=== PATIENT | female | born 1940 | race Caucasian/White ===

== ENCOUNTER → 2018-01-09 | Outpatient (REF) | payer MEDICARE, BC, OTHER ==
[2018-01-09 18:00] LABS: ERYTHROCYTE SEDIMENTATION RATE 12 mm/hr (0-30)
[2018-01-09 18:05] LABS: C REACTIVE PROTEIN QUANTITATIV < 0.30 MG/DL (0.00-0.30); COMPLEMENT C4 28.6 MG/DL (10-40)
[2018-01-09 18:05] LABS: COMPLEMENT C3 110 MG/DL (90-180)
[2018-01-15 00:07] LABS: ANCA-ATYPICAL 1:40 titer (Neg:<1:20); COMPLEMENT TOTAL (CH50) > 63 U/mL (>41); CYTOPLASMIC NEUTROP AB ANCA-C <1:20 titer (Neg:<1:20); MYELOPEROXIDASE ANTIBODY <9.0 U/mL (0.0-9.0); PERINUCLEAR AB ANCA-P <1:20 titer (Neg:<1:20); PR3 ANTIPROTEINASE ANTIBODIES <3.5 U/mL (0.0-3.5)
== END ==
LOC: M LABNEURO 10:59
DX: L95.9 Vasculitis limited to the skin, unspecified (principal); N18.9 Chronic kidney disease, unspecified
CPT/HCPCS: 86160

== ENCOUNTER → 2018-02-10 | Outpatient (REF) | payer MEDICARE, BC, OTHER ==
[2018-02-10 18:57] LABS: COMPLEMENT C3 131 MG/DL (90-180)
[2018-02-10 18:57] LABS: COMPLEMENT C4 30.9 MG/DL (10-40)
== END ==
LOC: M LAB REF 17:10
DX: N18.3 Chronic kidney disease, stage 3 (moderate) (principal)
CPT/HCPCS: 86160

== ENCOUNTER → 2018-04-02 | Outpatient (CLI) | payer MEDICARE, BC, OTHER | LOC: M RAD 09:00 | DX: N18.3 Chronic kidney disease, stage 3 (moderate) (principal) | CPT/HCPCS: 76775 ==

== ENCOUNTER → 2018-05-22 | Outpatient (REF) | payer MEDICARE, OTHER ==
[2018-05-22 14:35] LABS: TOTAL PROTEIN,RANDOM URINE 14.1 MG/DL (0.0-12.0)
== END ==
LOC: M LAB REF 13:51
DX: N18.3 Chronic kidney disease, stage 3 (moderate) (principal)
CPT/HCPCS: 82570

== ENCOUNTER → 2019-12-23 | Outpatient (REF) | payer MEDICARE, OTHER ==
[2019-12-23 18:34] LABS: BILIRUBIN,DIRECT 0.1 MG/DL (0.0-0.2); BILIRUBIN,TOTAL 0.5 MG/DL (0.2-1.0); CHOLESTEROL RISK RATIO 2.645 (<5); TOTAL PROTEIN 7.4 GM/DL (6.4-8.2)
== END ==
LOC: M LAB REF 16:36
PROVIDERS: ATTEND Internal Medicine Nephrology
DX: E78.2 Mixed hyperlipidemia (principal)

== ENCOUNTER 2020-11-02 16:32 | Inpatient (IN) | payer MEDICARE, BC, OTHER ==
[~2020-11-02] VITALS: Ht 152.4 cm; Wt 58.5 kg
[2020-11-02] MEDS ORDERED: LEVO50TA5 PO (17:19)
[2020-11-02] MEDS ORDERED: PRES10CA2 PO (17:19)
[2020-11-02] MEDS ORDERED: METO1TAB7 PO (17:19)
[2020-11-02] MEDS ORDERED: METO1TAB33 PO (17:19)
[2020-11-02] MEDS ORDERED: PRAL1INJ SQ (17:19)
[2020-11-02] MEDS ORDERED: CLOP75TA2 PO (17:19)
[2020-11-02] MEDS ORDERED: AMLO1TAB24 PO (17:19)
[2020-11-02] MEDS ORDERED: MECL-86 PO (17:19)
[2020-11-02] MEDS ORDERED: TIMO0.5S39 OU (17:19)
[2020-11-02] MEDS ORDERED: CALC1TAB19 PO (17:19)
[2020-11-02] MEDS ORDERED: LATA0.0015 OU (17:19)
[2020-11-02] MEDS ORDERED: ASPI81TA27 PO (17:19)
[2020-11-02] MEDS: NS 1,000 ML IV SCH ×2 (17:27→21:18)
[2020-11-02 17:28] LABS: BASO # 0.2 10^3/uL (0.0-0.2); BASO % 1.5 % (0.0-1.0); EOS # 0.2 10^3/uL (0.0-0.5); EOS % 2.2 % (0.0-3.0); HEMATOCRIT 48.6 % (36.0-47.0); HEMOGLOBIN 16.4 g/dl (12.0-15.5); LYMPH % 39.8 % (24.0-44.0); MEAN CORPUSCULAR HEMOGLOBIN 29.8 pg (27.0-33.0); MEAN CORPUSCULAR HGB CONC 33.7 g/dl (32.0-36.5); MEAN CORPUSCULAR VOLUME 88.4 fl (80.0-96.0); MONO # 0.9 10^3/uL (0.0-0.8); MONO % 8.5 % (2.0-8.0); NEUTROPHILS # 4.7 10^3/uL (1.5-8.5); NEUTROPHILS % 47.4 % (36.0-66.0); PLATELET COUNT, AUTOMATED 225 10^3/uL (150-450)
[2020-11-02 17:56] LABS: ALBUMIN 4.3 GM/DL (3.2-5.2); ALT/SGPT 23 U/L (12-78); BILIRUBIN,DIRECT 0.2 MG/DL (0.0-0.2); BILIRUBIN,TOTAL 0.6 MG/DL (0.2-1.0); BLOOD UREA NITROGEN 23 MG/DL (7-18); CALCIUM LEVEL 10.1 MG/DL (8.8-10.2); CARBON DIOXIDE LEVEL 18 MEQ/L (21-32); CHLORIDE LEVEL 109 MEQ/L (98-107); CREATININE FOR GFR 1.45 MG/DL (0.55-1.30); GLOMERULAR FILTRATION RATE 36.9 (>32); GLUCOSE, FASTING 97 MG/DL (70-100); POTASSIUM SERUM 3.4 MEQ/L (3.5-5.1); SODIUM LEVEL 145 MEQ/L (136-145); TOTAL PROTEIN 7.4 GM/DL (6.4-8.2)
--- NOTE | 2020-11-02 17:56 | REP ---
INDICATION: Altered Mental Status. COMPARISON: 08/31/2005. TECHNIQUE: Portable AP chest with the patient sitting. FINDINGS: The lung garcia are clear. Cardiac size is normal. The cheng, mediastinum and skeletal structures are unremarkable. IMPRESSION: Essentially negative portable chest <Electronically signed by Albert Miller > 11/02/20 1752
[2020-11-02 18:29] LABS: RSV AMPLIFICATION NEGATIVE (NEGATIVE)
[2020-11-02 18:53] LABS: VENOUS BASE EXCESS -7.4 (-2.0-2.0); VENOUS HCO3 16.2 MEQ/L (23.0-27.0); VENOUS O2 SATURATION 96.6 % (60.0-80.0); VENOUS PARTIAL PRESSURE CO2 28.5 mmHg (38.0-50.0); VENOUS PARTIAL PRESSURE O2 83.1 mmHg (30.0-50.0); VENOUS PH 7.372 UNITS (7.330-7.430); VENOUS STANDARD HCO3 18.5 MEQ/L; VENOUS TOTAL CO2 17.1 MEQ/L (24.0-28.0)
[2020-11-02] MEDS ORDERED: ACETAMINOPHEN TAB 650MG DOSE (2X325MG) PO PRN (20:10)
[2020-11-02 20:14] LABS: ACETAMINOPHEN LEVEL < 2.0 UG/ML (10.0-30.0); ACETONE/KETONE > 46.00 MG/DL (<2.81); ETHYL ALCOHOL (ETHANOL) < 0.003 % (0.000-0.010); MAGNESIUM LEVEL 1.9 MG/DL (1.8-2.4); SALICYLATE LEVEL < 1.7 MG/DL (5.0-30.0)
[2020-11-02] MEDS ORDERED: MECLIZINE 25 MG TABLET PO PRN (20:15)
[2020-11-02] MEDS ORDERED: ONDANSETRON 4MG/2ML VIAL IV PRN (20:25)
[2020-11-02 20:38] VITALS: BP 149/71
[2020-11-02 21:03] LABS: TOTAL 25(OH) VITAMIN D 21.9 NG/ML (30.0-100.0)
[2020-11-02] MEDS: amLODIPine 5 MG TAB PO SCH (21:17)
[2020-11-02] MEDS: HEPARIN SOD (PORCINE) 5000UNITS/ML 1ML VIAL/SYRINGE SC SCH (21:17)
[2020-11-02 21:28] LABS: PTH INTACT 85.1 PG/ML (18.5-88.0)
--- NOTE | 2020-11-02 21:35 | HPEPDOC ---
[facility] Medical History & Physical Date of Admission Nov 02, 2020 Date of Service: Nov 02, 2020 Attending Physician: MISTY ATWOOD MD History and Physical CHIEF COMPLAINT: [80 y/o white female complains of N/V/D x2 months.] HISTORY OF PRESENT ILLNESS: [Patient is a somewhat poor historian. This is a 80 year old female who presents to the ER on 11/02 with complains of nausea, vomiting, diarrhea, left sided and epigastric abdominal pain, loss of appetite, and weight loss over about 2 months per patient. Patient states that her symptoms have steadily been getting worse. Patient states that her abdominal pain and nausea come in waves and that vomiting seems to make her symptoms better. Patient states that she has had problems with her GI tract for a long time including multiple surgeries but cannot recall specific details. Patient states that her symptoms are severe to the point where she has not been able to eat for several weeks and can only take small sips of liquid at a time. She states that she has been dry retching and only passing small amounts of stool the past few days. Patient admits to associated dizziness, faintness, one fall about a week ago in which she landed on her backside and did not get hurt. Patient denies fever, chills, hematochezia, hematemesis, chest pain, shortness of breath. Per pt, she has been seen at another ED several times in the past week or so, we will attempt to receive these records.] PAST MEDICAL HISTORY: 1. [HTN]. 2. [Hyperlipidemia]. 3. [Hypothyroidism]. 4. CKD PAST SURGICAL HISTORY: 1. [Bowel resection]. SOCIAL HISTORY: Marital status: []. Resides in: [Home with ] Children: [daughter] Employment: [retired] Tobacco use:[N] ETOH: [N] Illicit drug use: [N] ALLERGIES: Please see below. REVIEW OF SYSTEMS: CONSTITUTIONAL: [Refer to HPI]. HEENT: [Denies URI sx]. CARDIOVASCULAR: [Refer to HPI]. RESPIRATORY: [Denies cough, wheezing]. GASTROINTESTINAL: [Refer to HPI]. GENITOURINARY: [Denies dysuria]. SKIN: [Denies rash]. MUSCULOSKELETAL: [Admits to weakness]. ENDOCRINE: [Denies hx of diabetes]. HOME MEDICATIONS: Please see below. PHYSICAL EXAMINATION: VITAL SIGNS: see below GENERAL APPEARANCE: [This is a tired appearing 80 y/o female. She is laying supine in bed comfortable in no acute distress.]. HEENT: [No rash, mass or lesion noted. EOMI, no conjunctival erythema or scleral icterus. Nares patent. Oral mucosa mildly dry. No erythema of oral mucosa.]. CARDIOVASCULAR: [Regular rate and rhythm. No murmurs, rubs or gallops noted.]. LUNGS: [Good air exchange. No wheezes, rales or rhonchi appreciated.]. ABDOMEN: [Soft, non-distended. Epigastric and LUQ tenderness noted. No organomegaly.]. EXTREMITIES: [Mild peripheral edema to LLE. Pulses intact.]. NEUROLOGICAL: [A+Ox3, slightly forgetful. Speech clear. Strength noted as 5/5 in all extremities. No focal deficits.]. PSYCHIATRIC: [Mood and affect appear appropriate. Patient is responsive to all questioning.]. LABORATORY DATA: See below. IMAGING: [Normal CXR performed in ED] MICROBIOLOGY: Please see below. ASSESSMENT/PLAN: 1. [Dehydration]. - Secondary to GI illness - 1L of normal saline has been started in the ER at 100ml/hr. We will reassess need for more fluid as this is administered. - Patient has been started on fluid diet, we will encourage oral intake as much as is tolerated - ADELAIDA is possible, as her creatinine is elevated, but no baseline is available. Etiology dehydration vs. ckd. We have ordered mag, phos, pth, urine urea nitrogen. Patient follows Dr. Montelongo nephrology outpatient, so can consider renal US in the morning 2. GI complaints - Etiology is currently unclear. We will attempt to collect old records to put together a good picture of this patient's PMH and review recent imaging performed at outside hospital. - We will begin zofran 4mg IV q4h prn for nausea and vomiting - Dr. Fishman surgery will be following and is consulted 3. Anion Gap Metabolic Acidosis - This patient has no history of diabetes but has anion gap metabolic acidosis with positive elevated beta hydroxybutyrate. Clinical picture and these results make us suspicious of starvation ketosis. - Ordered acetaminophen level, acetone, ethyl alcohol, liver profile, , salicylate, [id number], - Follow blood gases 4. Hypokalemia - Currently at 3.4, we will hold off on treatment and monitor as patient is rehydrated 5. HTN - well controlled - continue metoprolol and norvasc 6. Hypothyroidism - continue synthroid - tsh ordered 7. DVT prophylaxis - Heparin ordered, continue at home plavix and aspirin Vital Signs Vital Signs Date Time Temp Pulse Resp B/P (MAP) Pulse Ox O2 Delivery O2 Flow Rate FiO2 11/02/20 20:00 97.1 86 17 136/68 (90) 99 Room Air Laboratory Data Labs 24H Laboratory Tests 2 11/02/20 16:55: Immature Granulocyte % (Auto) 0.6, Neutrophils (%) (Auto) 47.4, Lymphocytes (%) (Auto) 39.8, Monocytes (%) (Auto) 8.5H, Eosinophils (%) (Auto) 2.2, Basophils (%) (Auto) 1.5H, Neutrophils # (Auto) 4.7, Lymphocytes # (Auto) 4.0, Monocytes # (Auto) 0.9H, Eosinophils # (Auto) 0.2, Basophils # (Auto) 0.2, Nucleated Red Blood Cells % (auto) 0.0, Anion Gap 18H, Glomerular Filtration Rate 36.9, Lactic Acid Level 1.6, Calcium Level 10.1, Magnesium Level 1.9, Total Bilirubin 0.6, Direct Bilirubin 0.2, Aspartate Amino Transf (AST/SGOT) 26, Alanine Aminotransferase (ALT/SGPT) 23, Alkaline Phosphatase 93, Total Protein 7.4, Albumin 4.3, Albumin/Globulin Ratio 1.4, Thyroid Stimulating Hormone (TSH) 3.720, Salicylates Level < 1.7L, Acetaminophen Level < 2.0L, Ethyl Alcohol Level < 0.003, B-Hydroxybutyrate > 46.00H 11/02/20 17:22: POC Glucose (Misc Panel) 98, POC Sodium (Misc Panel) 143, POC Potassium (Misc P noemi) 3.6, POC Chloride (Misc Panel) 108, POC Total CO2 (Misc Panel) 19.0L, POC Blood Urea Nitrogen (Misc Panel 25, POC Ionized Calcium (Misc Panel) 4.7, POC Creatinine (Misc Panel) 1.5H, POC Hematocrit (Misc Panel) 48.0 11/02/20 17:28: Coronavirus (COVID-19)(PCR) NEGATIVE, Influenza Type A (RT-PCR) NEGATIVE, Influenza Type B (RT-PCR) NEGATIVE, Respiratory Syncytial Virus (PCR) NEGATIVE 11/02/20 18:45: Blood Gas Bicarbonate Standard 18.5, Venous Blood pH 7.372, Venous Blood Partial Pressure CO2 28.5L, Venous Blood Partial Pressure O2 83.1H, Venous Blood Total Carbon Dioxide 17.1L, Venous Blood HCO3 16.2L, Venous Blood Oxygen Saturation 96.6H, Venous Blood Base Excess -7.4L CBC/BMP Laboratory Tests 11/02/20 16:55 Home Medications Scheduled Alirocumab (Praluent Pen) 75 Mg/1 Ml Pen.injctr, 75 MG SQ Q2WK PATIENT IS BEHIND BY 1 WEEK Amlodipine Besylate (Amlodipine Besylate) 5 Mg Tablet, 5 MG PO BID Aspirin (Aspirin EC) 81 Mg Tablet.dr, 81 MG PO DAILY Calcium Carbonate/Vitamin D3 (Calcium 600-Vit D3 800 Tablet) 1 Each Tablet, 1 TAB PO DAILY Clopidogrel Bisulfate (Clopidogrel) 75 Mg Tablet, 75 MG PO DAILY Latanoprost/Pf (Latanoprost 0.005% Eye Drop) 7.5 Ml Drops, 1 DROP OU QHS Levothyroxine Sodium (Levothyroxine Sodium) 50 Mcg Tablet, 50 MCG PO DAILY Metoprolol Succinate (Metoprolol Succinate) 50 Mg Tab.er.24h, 50 MG PO DAILY 150MG TOTAL DAILY Metoprolol Succinate (Metoprolol Succinate) 100 Mg Tab.er.24h, 100 MG PO DAILY 150MG TOTAL DAILY Timolol Maleate (Timolol Maleate) 0.5% 5ML Drop.daily, 1 DROP OU DAILY Vit C/E/Zn/Coppr/Lutein/Zeaxan (Preservision Areds 2 Softgel) 1 Each Capsule, 2 CAP PO DAILY Scheduled PRN Meclizine HCl (Meclizine HCl) 25 Mg Tablet, 25 MG PO TID PRN for DIZZINESS Allergies Coded Allergies: meperidine (Verified Allergy, Severe, SHOCK LIKE SYMPTOMS, 11/02/20) codeine (Verified Adverse Reaction, Mild, N/V, 11/02/20) fentanyl (Verified Adverse Reaction, Mild, PAIN FROM HEAD TO TOES, 11/02/20) A-FIB/CHADSVASC A-FIB History Current/History of A-Fib/PAF?: No Attending Note Attending Note Time of service 906pm Ms. Walrath is an 80 yr old M w a hx of dementia, HTN, hypothyroidism, DLP and CKD of unknown stage who has been having difficulties swallowing solids along with diarrhea and weight loss; she was recently hospitalized at [facility]. sent her to the ER for evaluation and will see the patient in the morning in the meanwhile we will admit her for management of dehydration 2/2 poor PO intake, starvation ketosis (acetone is high), ADELAIDA vs CKD & diarrhea and dysphagia. Plan: IVF, f/u renal studies & request records from office, f/u C.diff, obtain records from [facility] and f/u w prior to ordering imaging studies. Rest per JO ANN Lugo's H&P HALLE LUGO Nov 02, 2020 21:06 MISTY ATWOOD MD Nov 03, 2020 02:01
[2020-11-03] MEDS: LATANOPROST 0.005% OPHTH SOLN 2.5 ML OU SCH ×2 (00:31→20:24)
--- NOTE | 2020-11-03 01:12 | ECGEPIP ---
[facility] - ED Test Date: 2020-11-02 Pat Name: SULEIMAN SANTOS Department: Room: - Gender: Female It Help Desk Associate: : 1940 Requested By: Marilu Gómez Order Number: [id number] Reading MD: Ernesto Prieto Measurements Intervals [place] Rate: 68 P: 13 SC: 180 QRS: -56 QRSD: 84 T: 57 QT: 426 QTc: 452 Interpretive Statements Normal sinus rhythm Left axis deviation Inferior infarct , age undetermined Anteroseptal infarct , age undetermined NONSPECIFIC T WAVE ABNORMALITY(S) NO PRIORS FOR COMPARISON Electronically Signed on 11-03-2020 1:12:07 EDT by Ernesto Prieto
[2020-11-03 01:26] LABS: CREATININE,RANDOM URINE 55.9 MG/DL
[2020-11-03] MEDS: LEVOTHYROXINE 50MCG TABLET (0.05MG) PO SCH (05:48)
[2020-11-03 06:00] VITALS: BP 135/78
[2020-11-03 08:47] VITALS: BP_SYST 107; BP_SYST 114; BP_SYST 134; BP_DIAS 56; BP_DIAS 70; BP_DIAS 78
[2020-11-03] MEDS: amLODIPine 5 MG TAB PO SCH ×2 (08:55→20:27)
[2020-11-03] MEDS: METOPROLOL SUCC (TopROL XL) 50MG **XL** TAB PO SCH (08:55)
[2020-11-03] MEDS: CALCIUM/VITAMIN D 500 MG TAB PO SCH (08:56)
[2020-11-03] MEDS: TIMOLOL MALEATE 0.5% OPHTH SOLN 5 ML OU SCH (08:56)
[2020-11-03] MEDS: HEPARIN SOD (PORCINE) 5000UNITS/ML 1ML VIAL/SYRINGE SC SCH ×2 (08:56→20:24)
[2020-11-03] MEDS: ASPIRIN 81MG ENTERIC TABLET PO SCH (08:56)
[2020-11-03] MEDS: CLOPIDOGREL 75 MG TAB PO SCH (08:56)
[2020-11-03] MEDS ORDERED: METOPROLOL SUCC (TopROL XL) 100MG *XL* TAB PO SCH (09:00)
--- NOTE | 2020-11-03 11:28 | IPNPDOC ---
Subjective Date Seen The patient was seen on 11/03/20. Subjective Chief Complaint/HPI Subjective: Pt was seen at bedside. She's AAOx3 and denies any n/v/d currently. She's dizzy when she stands up and has had positive orthostats. Currently on fluids @100cc/h. She also states that she has epigastric and left sided abdominal discomfort that's dull in nature. Denies any CP, fever, chills. OBJECTIVE: PHYSICAL EXAM: GENERAL APPEARANCE: This is a tired appearing 80 y/o female. She is laying supine in bed comfortable in no acute distress. HEENT: No rash, mass or lesion noted. EOMI, no conjunctival erythema or scleral icterus. Nares patent. Oral mucosa mildly dry. No erythema of oral mucosa CARDIOVASCULAR: Regular rate and rhythm. No murmurs, rubs or gallops noted LUNGS: Good air exchange. No wheezes, rales or rhonchi appreciated ABDOMEN: Soft, non-distended. Epigastric and LUQ tenderness noted. No organomegaly EXTREMITIES: Mild peripheral edema to LLE. Pulses intact NEUROLOGICAL: AAOx3, slightly forgetful. Speech clear. Strength noted as 5/5 in all extremities. No focal neuro deficits PSYCHIATRIC: states she's experiencing hallucinations lately, appropriate mood and affect; no flat affect; no suicidal ideation ASSESSMENT AND PLAN: Patient is 80 y/o elderly female with PMHx significant for HTN, Lower extr venous bypass surgery on ASA and plavix, dementia, who presents with 1 month hx of n/v/d and decreased to essentially none PO intake for the past 2 weeks. Pt is a very poor historian, but she also had a complaint of midepigastric and lower abdominal pain as well as decreased ability to swallow. She states that she's been swallowing bits of food but then throws it back up. Also states that she's had about a 10Lb weight loss which may be due to poor intake. She initially reported to PCP Dr. Chiang who prescribed her cipro/flagyl which did not solve any of her symptoms. She presnted back to him who then sent her to [facility] ER for further workup. There, she was found to have elevated lipase and amylase and admitted for acute pancreatitis. scans of her gallbladder ultrasound showed fatty infiltration of the liver, but otherwise unremarkable RUQ u/s. MRI or abd with MRCP did not show any pancreatic abn. She's mananged for acute pancreatitis and discharged from the hospital to f/u with her PCP. Post discharge she continues to have the same symtpoms as mentioned above and presents back to her PCP who sent her to Dr. Fishman (Gen surgeon) who saw her yesterday. Pt presents to ER last night with same complaints, and found to have orthostatic hypotension, ADELAIDA. She was given fluids in the ER. I spoke with him and a consult has been put in as well. GI service is not diamond cleaner in the hospital. Will order for a barium esophagram to evaluate dysphagia and admit her to hospitalist service for further mgmt and workup. #Orthostatic hypotension - Dehydration- c/w fluids @100cc/h #Dysphagia - Barium swallow ordered - NPO status - Seven Fishman (gen surg) consulted- appreciate further recommendations - fecal fat stool ordered- r/o possible pancreatic insufficiency #nausea/vomiting/abdominal pain - Reviewed MRI abd with MRCP, CT scans from [facility] admission records (see chart for full details) - currently controlled on zofran - will monitor for Qt prolongation #HTN - will continue home meds and adjust as needed - will hold metoprolol for now #Hx of unspecific vein bypass - c/w asa and plavix #hypothyroidism -c/w home meds #Dementia - Pt states she's been experiencing hallucinations lately - will continue to monitor- if she becomes agitated and actively hallucinating during hospitalization, will consider meds Diet: NPO Fluids: NS @100cc/h dvt ppx: heparin CODE STATUS: DNR/DNI Disposition: I have spoken with patient's daughter Keyla Morrison ) at length to gather more history. I have also spoken with Dr. Fishman (Gen surgery) -appreciate more recommendations Assessment /Plan Plan/VTE VTE Prophylaxis Ordered?: Yes VS, I&O, 24H, Fishbone Vital Signs/I&O Vital Signs Date Time Temp Pulse Resp B/P (MAP) Pulse Ox O2 Delivery O2 Flow Rate FiO2 11/03/20 08:47 110 134/70 (91) 106 114/78 (90) 107/56 (73) 11/03/20 06:00 96.9 18 99 Room Air I&O- Last 24 Hours up to 6 AM 11/03/20 06:00 Intake Total 1210 ml Output Total 0 ml Balance 1210 ml Laboratory Data 24H LABS Laboratory Tests 2 11/02/20 16:55: Immature Granulocyte % (Auto) 0.6, Neutrophils (%) (Auto) 47.4, Lymphocytes (%) (Auto) 39.8, Monocytes (%) (Auto) 8.5H, Eosinophils (%) (Auto) 2.2, Basophils (%) (Auto) 1.5H, Neutrophils # (Auto) 4.7, Lymphocytes # (Auto) 4.0, Monocytes # (Auto) 0.9H, Eosinophils # (Auto) 0.2, Basophils # (Auto) 0.2, Nucleated Red Blood Cells % (auto) 0.0, Anion Gap 18H, Glomerular Filtration Rate 36.9, Lactic Acid Level 1.6, Calcium Level 10.1, Phosphorus Level 3.0, Magnesium Level 1.9, Total Bilirubin 0.6, Direct Bilirubin 0.2, Aspartate Amino Transf (AST/SGOT) 26, Alanine Aminotransferase (ALT/SGPT) 23, Alkaline Phosphatase 93, Total Protein 7.4, Albumin 4.3, Albumin/Globulin Ratio 1.4, 25-Hydroxy Vitamin D Total 21.9L, Thyroid Stimulating Hormone (TSH) 3.720, Parathyroid Hormone (Intact) 85.1, Salicylates Level < 1.7L, Acetaminophen Level < 2.0L, Ethyl Alcohol Level < 0.003, B-Hydroxybutyrate > 46.00H 11/02/20 17:22: POC Glucose (Misc Panel) 98, POC Sodium (Misc Panel) 143, POC Potassium (Misc Panel) 3.6, POC Chloride (Misc Panel) 108, POC Total CO2 (Misc Panel) 19.0L, POC Blood Urea Nitrogen (Misc Panel 25, POC Ionized Calcium (Misc Panel) 4.7, POC Creatinine (Misc Panel) 1.5H, POC Hematocrit (Misc Panel) 48.0 11/02/20 17:28: Coronavirus (COVID-19)(PCR) NEGATIVE, Influenza Type A (RT-PCR) NEGATIVE, Influenza Type B (RT-PCR) NEGATIVE, Respiratory Syncytial Virus (PCR) NEGATIVE 11/02/20 18:45: Blood Gas Bicarbonate Standard 18.5, Venous Blood pH 7.372, Venous Blood Partial Pressure CO2 28.5L, Venous Blood Partial Pressure O2 83.1H, Venous Blood Total Carbon Dioxide 17.1L, Venous Blood HCO3 16.2L, Venous Blood Oxygen Saturation 96.6H, Venous Blood Base Excess -7.4L 11/03/20 00:45: Urine Random Creatinine 55.9, Urine Random Sodium 112 CBC/BMP Laboratory Tests 11/02/20 16:55 GME ATTESTATION GME ATTESTATION My faculty preceptor for this patient encounter was physically present during t he encounter and was fully available. All aspects of the patient interview, examination, medical decision making process, and medical care plan development were reviewed and approved by the faculty preceptor. The faculty preceptor is aware and concurs with the plan as stated in the body of this note and will attest to such by his/her cosignature. ATTENDING NOTE I, Benny Horner MD, have independently examined this patient and performed my own physical exam, as well as reviewed the documentation and edited where necessary. I have discussed in detail with the resident / student the findings and plan of treatment as documented by the resident / student and edited their note. I agree with their findings and treatment plan and have edited their documentation Dean Moreno DO Nov 03, 2020 11:28 BENNY HORNER MD Nov 09, 2020 09:45
[2020-11-03] MEDS ORDERED: E-Z-GAS II EFFERVESCENT PACKET (SODIUM BICARB./CITRIC ACID/SIMETHICONE) As Ordered ONE (11:32)
[2020-11-03] MEDS ORDERED: E-Z-HD 98% w/w 340GM SUSP BTL As Ordered ONE (11:32)
[2020-11-03] MEDS ORDERED: E-Z-PAQUE 96% w/w SUSP 176GM BTL As Ordered ONE (11:32)
[2020-11-03] MEDS: NS 1,000 ML IV SCH ×2 (13:47→20:28)
[2020-11-03 14:00] VITALS: BP 123/55
--- NOTE | 2020-11-03 14:36 | REP ---
INDICATION: dysphagia. COMPARISON: None TECHNIQUE: This procedure was performed by Kaitlynn Patterson, [facility], under the direct supervision of . Images were reviewed with prior to dictation. Liquid barium and gas producing crystals were given in the erect position, as well as liquid barium in the prone oblique position in order to perform a double contrast esophagram examination. FINDINGS: A single view PA chest x-ray is submitted as a collator operator film. There are no changes since the previous chest x-ray dated 11/02/2020. The oral and pharyngeal stages of deglutition were unremarkable. Esophageal transport is delayed. There is dysmotility of the esophagus as well as mild dilation of the mid body, this then tapers distally to a questions submucosal stricture. Endoscopic correlation is strongly recommended. Tertiary contractions were also visualized during the exam. There is evidence of a hiatal hernia. There was no gastroesophageal reflux noted . IMPRESSION: 1. 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 2. Tertiary contractions. 3. Hiatal hernia. 1.4 minutes of fluoroscopy time was utilized for this procedure. Some fluoroscopic images are performed with last image hold technology. These images require no additional radiation. <Electronically signed by Kaitlynn Patterson > 11/03/20 1416 <Electronically signed by Chau Vazquez > 11/03/20 1431
--- NOTE | 2020-11-03 18:16 | CR ---
CONSULTATION DATE: 11/03/2020 HISTORY OF PRESENT ILLNESS: The patient was admitted last night after I saw her in the office. She had some orthostatic hypotension. She had this significant dysphasia and progressive dysphasia the family friend noted and unfortunately the patient is such a poor historian that we are not able to get much for history. She has had a recent admission in [place] with a workup of some issues and came down to my office with some x-rays but no paperwork and no discharge summaries and no other information. She had multiple complaints and still has those which is dysphasia that has been short in onset and in addition, has had severe diarrhea that has been going on for a month and has had some abdominal pain although it is hard to tell if this has been a longterm status. There was some element of questionable pancreatitis appreciated on an order for CAT scan/x-rays, however when I looked at the results and the films, I was not appreciating any significant peripancreatic inflammation. Ultrasound nor MRI revealed no evidence of stones, although the CAT scan suggests there may be some gallstones, but I feel that this is probably artifact. PAST MEDICAL HISTORY: The patient's past medical history is significant for: 1. History of hypertension. 2. Hyperlipidemia. 3. Hypothyroidism. 4. Chronic kidney disease. 5. History of bowel resection. PHYSICAL EXAMINATION: GENERAL APPEARANCE: A confused 80-year-old female who looks in no apparent distress. HEENT: Unremarkable. She looks as though she has a Dunbar's palsy (and after discussion with daughter, she has had a history of Dunbar's palsy). LUNGS: Clear anteriorly. HEART: Regular. ABDOMEN: Soft, nontender, nondistended. (Not appreciating this tenderness that was appreciated previously in the left mid abdomen.) EXTREMITIES: Warm and well perfused. IMPRESSION AND PLAN: 1. Orthostatic hypotension, probably secondary to dysphagia, secondary to dehydration, and I agree with fluid resuscitation - The confusing issue is that if she has had this progressive dysphagia, this would not fit very well with diarrhea issues and so I feel like there is something outside the abnormality here that is yet to be determined. I do feel that a barium swallow is obvious necessary to see if we have a functional issue or a true obstruction. 2. Diarrhea obviously some stool studies are being waited on at this point and we will see what those result, but if those are negative, then a colonoscopy may be warranted for her. From the standpoint of nutritional issues, I anticipate that she will need to have some sort of additional feeds, and I am not sure if this is secondary to neurologic issues or whether this is secondary to true dysphagia. Obviously a confusing issue is that her albumin is fine, despite a 20-pound weight loss. In general it is obvious that we have some work to do and we are just at the beginning of the workup and we will have to see what further studies show. It may be that we need to start some nutritional/enteral feeds via a feeding tube within the next couple of days just to assist with our overall patient status and fatigue and see if that makes any difference. It does sound as though she has had some sundowning as well, so I do think there is something more going on from a neurologic/short term memory loss issue, and thus I will defer obviously, those issues to more appropriate individuals. In any case, I will be glad to help with her care and will continue with seeing how we can assist with her increasing her nutritional input and seeing if we can modify her diarrhea issues.
[2020-11-03 22:00] VITALS: BP 134/66
[2020-11-04 06:07] LABS: BASO # 0.1 10^3/uL (0.0-0.2); BASO % 1.5 % (0.0-1.0); EOS # 0.3 10^3/uL (0.0-0.5); EOS % 5.5 % (0.0-3.0); HEMATOCRIT 36.3 % (36.0-47.0); LYMPH # 2.4 10^3/uL (1.5-5.0); LYMPH % 44.4 % (24.0-44.0); MEAN CORPUSCULAR HEMOGLOBIN 30.4 pg (27.0-33.0); MEAN CORPUSCULAR HGB CONC 34.4 g/dl (32.0-36.5); MEAN CORPUSCULAR VOLUME 88.3 fl (80.0-96.0); MONO # 0.6 10^3/uL (0.0-0.8); MONO % 10.8 % (2.0-8.0); NEUTROPHILS % 37.1 % (36.0-66.0); PLATELET COUNT, AUTOMATED 135 10^3/uL (150-450); RED BLOOD COUNT 4.11 10^6/uL (4.00-5.40); WHITE BLOOD COUNT 5.5 10^3/uL (4.0-10.0)
[2020-11-04 06:10] LABS: HEMOGLOBIN 12.5 g/dl (12.0-15.5)
[2020-11-04] MEDS: LEVOTHYROXINE 50MCG TABLET (0.05MG) PO SCH (06:24)
[2020-11-04] MEDS: NS 1,000 ML IV SCH (06:25)
[2020-11-04 06:33] LABS: BLOOD UREA NITROGEN 9 MG/DL (7-18); CALCIUM LEVEL 7.8 MG/DL (8.8-10.2); CARBON DIOXIDE LEVEL 19 MEQ/L (21-32); CHLORIDE LEVEL 116 MEQ/L (98-107); CREATININE FOR GFR 0.83 MG/DL (0.55-1.30); GLOMERULAR FILTRATION RATE > 60.0 (>32); GLUCOSE, FASTING 57 MG/DL (70-100); POTASSIUM SERUM 2.7 MEQ/L (3.5-5.1); SODIUM LEVEL 148 MEQ/L (136-145)
[2020-11-04] MEDS ORDERED: POTASSIUM CHLORIDE 10 MEQ SR TABLET PO ONE ×2 (06:45)
[2020-11-04 07:40] LABS: MAGNESIUM LEVEL 1.4 MG/DL (1.8-2.4)
[2020-11-04] MEDS: MAG SULF 1GM/100ML (MAG RUN) 1 GM in IV 1 EA IV SCH ×3 (08:54→11:29)
[2020-11-04] MEDS: D5W/0.45% SODIUM CHLORIDE 1,000 ML IV SCH ×2 (08:55→19:32)
[2020-11-04] MEDS: CALCIUM/VITAMIN D 500 MG TAB PO SCH (08:58)
[2020-11-04] MEDS: amLODIPine 5 MG TAB PO SCH ×2 (08:58→22:05)
[2020-11-04] MEDS: HEPARIN SOD (PORCINE) 5000UNITS/ML 1ML VIAL/SYRINGE SC SCH ×2 (08:58→22:02)
[2020-11-04] MEDS: ASPIRIN 81MG ENTERIC TABLET PO SCH (08:58)
[2020-11-04] MEDS: METOPROLOL SUCC (TopROL XL) 50MG **XL** TAB PO SCH (08:58)
[2020-11-04] MEDS: CLOPIDOGREL 75 MG TAB PO SCH (08:58)
[2020-11-04] MEDS: TIMOLOL MALEATE 0.5% OPHTH SOLN 5 ML OU SCH (08:59)
[2020-11-04 10:20] LABS: VITAMIN B12 LEVEL 694 PG/ML
[2020-11-04 10:21] LABS: FOLATE 17.9 NG/ML
--- NOTE | 2020-11-04 10:29 | IPNPDOC ---
Date Seen The patient was seen on 11/04/20. Progress Note SUBJECTIVE: Patient was seen and examined this morning. There have been no adverse effects reported overnight. She did receive her barium swallow yesterday which demonstrated dysmotility of the esophagus with a stricture distally. Additionally the patient has noted that she continues to have diarrhea. Patient also admits to hallucinations. She has noted seeing things that are not there. She states that this has been going on for a while where she sees or hears something that turns out to be false OBJECTIVE PHYSICAL EXAMINATION: VITAL SIGNS: Please see below. GENERAL: Awake, alert, and oriented. Appears in no acute distress. Lying comfortably in bed HEENT: Normocephalic. Atraumatic. Eyes nonicteric. Trachea is midline. Mucous membranes are pink and moist CARDIOVASCULAR: Normal S1. S2. Regular rate and rhythm. No clicks rubs or murmurs RESPIRATORY: Clear vesicular breath sounds bilaterally. Good respiratory effort. No wheezes, rhonchi or rales ABDOMINAL: Soft, nondistended. Mild tenderness of the left lower quadrant. No rebound tenderness or guarding. Normoactive bowel sounds EXTREMITIES: No edema. Full and equal pulses in bilateral upper and lower extremities NEUROLOGICAL: No focal neurological deficits PSYCHOLOGICAL: Mood and affect appear appropriate LABORATORY DATA, IMAGING STUDIES, MICROBIOLOGY: Please see below. DVT prophylaxis ordered?: Heparin ASSESSMENT AND PLAN: Patient is an 80 year old female with a past medical history significant for hypertension, hypothyroidism, and hyperlipidemia who presented to [facility] with complaint of dysphagia and diarrhea for 1-2 month duration with 20lb weight loss. PROBLEMS: 1. Dysphagia -Patient received barium swallow yesterday which demonstrated esophageal dysmotility and distal stricture which could explain her dysphagia. General Surgery has been consulted for endoscopy. Recommendations and assistance appreci ated -Patient currently NPO for endoscopy today -Endoscopy demonstrating gastritis and duodenitis as well as a stricture at the GE junction. Her stricture has been balloon stented by Dr. Fishman. She has been started on Protonix BID and Carafate QID. 2. Chronic Diarrhea likely functional -Patient has complaint of chronic diarrhea. Etiology is unclear. Patient herself is a poor historian and her care is fragmented as she has presented to multiple providers and hospitals. From previous records obtained she was hospitalized previously and has had CT abdomen and pelvis as well as abdominal MRI with MRCP. She was diagnosed with pancreatitis although the patient herself denied any pain consistent with pancreatitis nor did imaging demonstrate pancreatitis. She did have an elevated lipase however in the setting of her vomiting this is expected. -C. diff panel has been negative at her previous hospitalization. Unlikely infectious diarrhea. Her history states that she has had bowel resection which could result in diarrhea due to malabsorption and decreased absorption of bile acids however the patient did not actually have a bowel resection. She had colon polyps removed. -Possibly secondary to pancreatic insufficiency. Fecal fat in stool has been ordered. -She does have dementia and admits to hallucinations. This could suggest a Lewy Body dementia. A diagnosis of LBD could tie most of her symptoms together as this can cause autonomic symptoms including dysphagia with dysmotility, hallucinations, orthostatic hypotension, and although rare diarrhea -Could consider adding cholestyramine 3. Hypokalemia and Hypomagnesemia -Likely secondary to gastrointestinal loss. Will continue to monitor and replete as needed. 4. HTN -Continued on Metoprolol. BP normotensive 5. History of Femoral bypass grafting/PAD -Continue ASA and Plavix 6. Hypothyroidism -Continue Synthroid 7. Dementia -Patient noted to have dementia. As noted above consider possible Lewy Body Dementia as the patient has had hallucinations. This would of course be a clinical diagnosis and she could get evaluation by Neurology outpatient. She would be at risk for sundowning. 8. DVT Prophylaxis -TEDs and Sequentials for now. Patient may get upper and lower endoscopy after which pharmacologic prophylaxis can be added DISPOSITION: Likely discharge in 48 hours. Patient is pending upper and lower endoscopy VS, I&O, 24H, Fishbone Vital Signs/I&O Vital Signs Date Time Temp Pulse Resp B/P (MAP) Pulse Ox O2 Delivery O2 Flow Rate FiO2 11/04/20 08:58 78 133/65 11/03/20 22:00 98.4 18 98 Room Air I&O- Last 24 Hours up to 6 AM 11/04/20 06:00 Intake Total 3390 ml Output Total 1000 ml Balance 2390 ml Laboratory Data 24H LABS Laboratory Tests 2 11/04/20 05:41: Immature Granulocyte % (Auto) 0.7, Neutrophils (%) (Auto) 37.1, Lymphocytes (%) (Auto) 44.4H, Monocytes (%) (Auto) 10.8H, Eosinophils (%) (Auto) 5.5H, Basophils (%) (Auto) 1.5H, Neutrophils # (Auto) 2.0, Lymphocytes # (Auto) 2.4, Monocytes # (Auto) 0.6, Eosinophils # (Auto) 0.3, Basophils # (Auto) 0.1, Nucleated Red Blood Cells % (auto) 0.0, Anion Gap 13, Glomerular Filtration Rate > 60.0, Calcium Level 7.8#L, Magnesium Level 1.4L CBC/BMP Laboratory Tests 11/04/20 05:41 GME ATTESTATION GME ATTESTATION My faculty preceptor for this patient encounter was physically present during the encounter and was fully available. All aspects of the patient interview, examination, medical decision making process, and medical care plan development were reviewed and approved by the faculty preceptor. The faculty preceptor is aware and concurs with the plan as stated in the body of this note and will attest to such by his/her cosignature. ATTENDING NOTE I, Benny Castro MD, have independently examined this patient and performed my own physical exam, as well as reviewed the documentation and edited where necessary. I have discussed in detail with the resident / student the findings and plan of treatment as documented by the resident / student and edited their note. I agree with their findings and treatment plan and have edited their documentation MIGUEL SMITH DO Nov 04, 2020 10:29 BENNY CASTRO MD Nov 09, 2020 09:46
--- NOTE | 2020-11-04 15:40 | ROOR ---
Patient Name: January Axel Procedure Date: 11/04/2020 3:03 PM Date of : 1940 Age: 80 Room: [facility] Gender: Female Note Status: Finalized Procedure: Upper GI endoscopy Indications: Dysphagia Providers: Richar Fishman Jr, MD Referring MD: 2. Inpatient 2. Inpatient Requesting Provider: Medicines: Propofol per Anesthesia Complications: No immediate complications. Procedure: Pre-Anesthesia Assessment: - Prior to the procedure, a History and Physical was performed, and patient medications and allergies were reviewed. The patient is competent. The risks and benefits of the procedure and the sedation options and risks were discussed with the patient. All questions were answered and informed consent was obtained. Patient identification and proposed procedure were verified by the physician and the nurse in the pre-procedure area and in the procedure room. Mental Status Examination: alert and oriented. Airway Examination: normal oropharyngeal airway and neck mobility. Respiratory Examination: clear to auscultation. CV Examination: normal. ASA Grade Assessment: II - A patient with mild systemic disease. After reviewing the risks and benefits, the patient was deemed in satisfactory condition to undergo the procedure. The anesthesia plan was to use moderate sedation / analgesia (conscious sedation). Immediately prior to administration of medications, the patient was re-assessed for adequacy to receive sedatives. The heart rate, respiratory rate, oxygen saturations, blood pressure, adequacy of pulmonary ventilation, and response to care were monitored throughout the procedure. The physical status of the patient was re-assessed after the procedure. The Endoscope was introduced through the mouth, and advanced to the second part of duodenum. The upper GI endoscopy was accomplished without difficulty. The patient tolerated the procedure well. Findings: The upper third of the esophagus, middle third of the esophagus and lower third of the esophagus were normal. One benign-appearing, intrinsic moderate stenosis was found at the gastroesophageal junction. The stenosis was traversed. A TTS dilator was passed through the scope. Dilation with a 10-11-12 mm balloon and a 12-13.5-15 mm balloon dilator was performed to 13.5 mm. A small hiatal hernia was present. Scattered severe inflammation with hemorrhage characterized by congestion (edema), erythema, friability and granularity was found in the gastric antrum. Biopsies were taken with a cold forceps for histology. Scattered severe inflammation characterized by congestion (edema), erosions, erythema and friability was found in the duodenal bulb and in the first portion of the duodenum. Biopsies were taken with a cold forceps for histology. The second portion of the duodenum was normal. Impression: - Normal upper third of esophagus, middle third of esophagus and lower third of esophagus. - Benign-appearing esophageal stenosis. Dilated. - Small hiatal hernia. - Gastritis with hemorrhage. Biopsied. - Duodenitis. Biopsied. - Normal second portion of the duodenum. Recommendation: - [facility]. Procedure Code(s): --- Professional --- 78249, Esophagogastroduodenoscopy, flexible, transoral; with transendoscopic balloon dilation of esophagus (less than 30 mm diameter) Diagnosis Code(s): --- Professional --- K22.2, Esophageal obstruction K44.9, Diaphragmatic hernia without obstruction or gangrene K29.71, Gastritis, unspecified, with bleeding K29.80, Duodenitis without bleeding R13.10, Dysphagia, unspecified CPT copyright 2019 [employer]. All rights reserved. The codes documented in this report are preliminary and upon film inspector review may be revised to meet current compliance requirements. Richar Fishman MD Richar Fishman Jr, MD 11/04/2020 3:40:14 PM Electronically signed by Richar Fishman Jr, MD Number of Addenda: 0 Note Initiated On: 11/04/2020 3:03 PM Estimated Blood Loss: Estimated blood loss: none.
[2020-11-04] MEDS: SUCRALFATE SUSP 1GM/10ML UD PO SCH ×2 (17:48→23:23)
[2020-11-04] MEDS: KCL 10MEQ/100ML SWI (KRUN) 10 MEQ in IV 1 EA IV SCH ×4 (17:49→22:02)
[2020-11-04 22:00] VITALS: BP 124/55
[2020-11-04] MEDS: PANTOPRAZOLE 40MG VIAL (C9113 PER 1) IV SCH (22:02)
[2020-11-04] MEDS: LATANOPROST 0.005% OPHTH SOLN 2.5 ML OU SCH (22:06)
[2020-11-05] MEDS ORDERED: RAMELTEON 8 MG TAB (ROZEREM) PO PRN (02:05)
[2020-11-05] MEDS: SUCRALFATE SUSP 1GM/10ML UD PO SCH ×3 (05:29→17:54)
[2020-11-05] MEDS: LEVOTHYROXINE 50MCG TABLET (0.05MG) PO SCH (05:29)
[2020-11-05 05:45] LABS: BASO # 0.1 10^3/uL (0.0-0.2); BASO % 0.9 % (0.0-1.0); EOS # 0.4 10^3/uL (0.0-0.5); HEMATOCRIT 35.2 % (36.0-47.0); LYMPH # 2.5 10^3/uL (1.5-5.0); LYMPH % 36.9 % (24.0-44.0); MEAN CORPUSCULAR HEMOGLOBIN 29.9 pg (27.0-33.0); MEAN CORPUSCULAR HGB CONC 34.1 g/dl (32.0-36.5); MEAN CORPUSCULAR VOLUME 87.8 fl (80.0-96.0); MONO # 0.7 10^3/uL (0.0-0.8); MONO % 10.7 % (2.0-8.0); NEUTROPHILS # 3.1 10^3/uL (1.5-8.5); NEUTROPHILS % 44.9 % (36.0-66.0); PLATELET COUNT, AUTOMATED 119 10^3/uL (150-450); RED BLOOD COUNT 4.01 10^6/uL (4.00-5.40); WHITE BLOOD COUNT 6.8 10^3/uL (4.0-10.0)
[2020-11-05 06:00] VITALS: BP 107/62
[2020-11-05 06:18] LABS: BLOOD UREA NITROGEN 4 MG/DL (7-18); CALCIUM LEVEL 7.6 MG/DL (8.8-10.2); CARBON DIOXIDE LEVEL 23 MEQ/L (21-32); CHLORIDE LEVEL 114 MEQ/L (98-107); CREATININE FOR GFR 0.67 MG/DL (0.55-1.30); GLOMERULAR FILTRATION RATE > 60.0 (>32); GLUCOSE, FASTING 125 MG/DL (70-100); POTASSIUM SERUM 3.4 MEQ/L (3.5-5.1); SODIUM LEVEL 143 MEQ/L (136-145)
[2020-11-05] MEDS: PANTOPRAZOLE 40MG VIAL (C9113 PER 1) IV SCH ×2 (08:29→20:38)
[2020-11-05] MEDS: ASPIRIN 81MG ENTERIC TABLET PO SCH (08:29)
[2020-11-05] MEDS: CALCIUM/VITAMIN D 500 MG TAB PO SCH (08:29)
[2020-11-05] MEDS: HEPARIN SOD (PORCINE) 5000UNITS/ML 1ML VIAL/SYRINGE SC SCH ×2 (08:32→20:39)
[2020-11-05] MEDS: CLOPIDOGREL 75 MG TAB PO SCH (08:32)
[2020-11-05] MEDS: TIMOLOL MALEATE 0.5% OPHTH SOLN 5 ML OU SCH (08:33)
[2020-11-05] MEDS: METOPROLOL SUCC (TopROL XL) 50MG **XL** TAB PO SCH ×2 (08:59→15:36)
[2020-11-05] MEDS: KCL 20MEQ IN D5/0.45NS 1000ML 1,000 ML IV SCH ×2 (09:00→20:38)
--- NOTE | 2020-11-05 10:41 | IPN ---
PROGRESS NOTE DATE: 11/05/2020 SUBJECTIVE: Ava is seen in [address] [place] [address], had an EGD yesterday with dilatation of the esophagus, some inflammatory changes were seen, but the stricture looked benign. She is not eating very well today, but she attributes that to "the food is all too sweet." She denies any dysphagia. She did not have a lower endoscopy done. PHYSICAL EXAMINATION: VITAL SIGNS: Afebrile, vital signs stable. LUNGS: Clear. HEART: Regular rhythm. ABDOMEN: Soft, nontender. EXTREMITIES: No peripheral edema. LABORATORY REVIEW: CBC unremarkable. CMP shows potassium 3.4. IMPRESSION: 1. Dysphagia; status post EGD with dilatation of a benign appearing esophageal stricture: Biopsies are pending. 2. Chronic diarrhea: She had a CT scan of the abdomen and pelvis as well as an MRI and MRCP. She has a fecal fat that is pending. I do not have access to her previous testing. I am going to be ordering a panel that includes a celiac screen. We could try empiric pancreatic enzymes. 3. Hypokalemia: Supplemental potassium has been given.
--- NOTE | 2020-11-05 11:37 | IPNPDOC ---
Text Note Date of Service The patient was seen on 11/05/20. NOTE No acute events overnight. She is tolerating diet. Denies nausea, emesis, or trouble swallowing. She is still having loose BMs. VSSAF NAD Abdomen soft, Nt, nd labs - below A) 80y/o f s/p EGD with dilation of distal esophageal benign appearing stricture P) clq diet till Saturday then advance to high fiber diet ambulate stool studies pending Isaiah Soto DO VS,Tierra, I+O VS, Tierra, I+O Laboratory Tests 11/05/20 05:25 Vital Signs Date Time Temp Pulse Resp B/P (MAP) Pulse Ox O2 Delivery O2 Flow Rate FiO2 11/05/20 08:59 60 110/60 11/05/20 06:00 97.7 16 95 Room Air I&O- Last 24 Hours up to 6 AM 11/05/20 06:00 Intake Total 1500 ml Output Total 250 ml Balance 1250 ml FEDE SOTO DO Nov 05, 2020 11:37
[2020-11-05 13:01] LABS: CLOSTRIDIUM DIFFICILE PCR NEGATIVE (NEGATIVE)
[2020-11-05 14:00] VITALS: BP 123/61
[2020-11-05] MEDS: LATANOPROST 0.005% OPHTH SOLN 2.5 ML OU SCH (20:39)
[2020-11-05 22:00] VITALS: BP 121/59
[2020-11-06] MEDS: SUCRALFATE SUSP 1GM/10ML UD PO SCH ×4 (00:25→17:44)
[2020-11-06] MEDS: LEVOTHYROXINE 50MCG TABLET (0.05MG) PO SCH (05:31)
[2020-11-06 06:00] VITALS: BP 130/60
[2020-11-06 06:00] LABS: BASO # 0.1 10^3/uL (0.0-0.2); BASO % 1.5 % (0.0-1.0); EOS # 0.5 10^3/uL (0.0-0.5); EOS % 7.8 % (0.0-3.0); HEMATOCRIT 39.8 % (36.0-47.0); HEMOGLOBIN 13.5 g/dl (12.0-15.5); LYMPH # 3.4 10^3/uL (1.5-5.0); LYMPH % 52.7 % (24.0-44.0); MEAN CORPUSCULAR HEMOGLOBIN 29.9 pg (27.0-33.0); MEAN CORPUSCULAR HGB CONC 33.9 g/dl (32.0-36.5); MEAN CORPUSCULAR VOLUME 88.1 fl (80.0-96.0); MONO # 0.8 10^3/uL (0.0-0.8); MONO % 12.1 % (2.0-8.0); NEUTROPHILS # 1.7 10^3/uL (1.5-8.5); NEUTROPHILS % 25.3 % (36.0-66.0); PLATELET COUNT, AUTOMATED 127 10^3/uL (150-450); RED BLOOD COUNT 4.52 10^6/uL (4.00-5.40); WHITE BLOOD COUNT 6.5 10^3/uL (4.0-10.0)
[2020-11-06 06:18] LABS: BLOOD UREA NITROGEN 3 MG/DL (7-18); CARBON DIOXIDE LEVEL 23 MEQ/L (21-32); CHLORIDE LEVEL 116 MEQ/L (98-107); CREATININE FOR GFR 0.88 MG/DL (0.55-1.30); GLOMERULAR FILTRATION RATE > 60.0 (>32); GLUCOSE, FASTING 96 MG/DL (70-100); POTASSIUM SERUM 3.7 MEQ/L (3.5-5.1); SODIUM LEVEL 144 MEQ/L (136-145)
[2020-11-06] MEDS: PANTOPRAZOLE 40MG VIAL (C9113 PER 1) IV SCH ×2 (08:56→20:53)
[2020-11-06] MEDS: HEPARIN SOD (PORCINE) 5000UNITS/ML 1ML VIAL/SYRINGE SC SCH ×2 (08:56→20:53)
[2020-11-06] MEDS: METOPROLOL SUCC (TopROL XL) 50MG **XL** TAB PO SCH ×3 (08:57→16:56)
[2020-11-06] MEDS: CALCIUM/VITAMIN D 500 MG TAB PO SCH (08:57)
[2020-11-06] MEDS: ASPIRIN 81MG ENTERIC TABLET PO SCH (08:57)
[2020-11-06] MEDS: CLOPIDOGREL 75 MG TAB PO SCH (08:57)
[2020-11-06] MEDS: TIMOLOL MALEATE 0.5% OPHTH SOLN 5 ML OU SCH (08:58)
[2020-11-06] MEDS: KCL 20MEQ IN D5/0.45NS 1000ML 1,000 ML IV SCH ×2 (09:06→20:53)
--- NOTE | 2020-11-06 10:12 | IPNPDOC ---
Text Note Date of Service The patient was seen on 11/06/20. NOTE No acute events overnight. She is tolerating the clear liquid diet. Denies na usea, emesis, or trouble swallowing. She is still having loose BMs. VSSAF NAD Abdomen soft, Nt, nd labs - below A) 80y/o f s/p EGD with dilation of distal esophageal benign appearing stricture P) will advance to soft diet today ambulate stool studies pending Isaiah Soto DO VS,[place], I+O VS, Fishbone, I+O Laboratory Tests 11/06/20 05:44 Vital Signs Date Time Temp Pulse Resp B/P (MAP) Pulse Ox O2 Delivery O2 Flow Rate FiO2 11/06/20 08:57 62 130/60 11/06/20 06:00 97.4 18 98 11/05/20 14:00 Room Air I&O- Last 24 Hours up to 6 AM 11/06/20 06:00 Intake Total 1980 ml Output Total 1850 ml Balance 130 ml FEDE SOTO DO Nov 06, 2020 10:12
--- NOTE | 2020-11-06 13:51 | IPN ---
PROGRESS NOTE DATE: 11/06/2020 Ava is taking oral better. She feels better than yesterday. Was seen by surgery yesterday, who thought she was improving. PHYSICAL EXAMINATION: Vital signs stable. afebrile. LUNGS: Clear. HEART: Regular rate and rhythm. ABDOMEN: Soft. Slightly tender in epigastric area, otherwise unremarkable. No peripheral edema. LABORATORY DATA: CBC unremarkable. Electrolytes unremarkable. Potassium is up to 3.7. IMPRESSION: 1. Dysphagia, status post esophagogastroduodenoscopy (EGD) with dilatation. Diet is per surgery. Apparently planning to advance this tomorrow. 2. Chronic diarrhea. Workup is pending. 3. Hypokalemia. This is improved. Acute rehabilitation unit (ARU) consult placed.
[2020-11-06 14:00] VITALS: BP 115/64
[2020-11-06] MEDS: LATANOPROST 0.005% OPHTH SOLN 2.5 ML OU SCH (20:53)
[2020-11-06 22:00] VITALS: BP 128/59
[2020-11-07] MEDS: SUCRALFATE SUSP 1GM/10ML UD PO SCH ×4 (00:29→17:11)
[2020-11-07] MEDS: METOPROLOL SUCC (TopROL XL) 50MG **XL** TAB PO SCH ×3 (00:30→17:11)
[2020-11-07] MEDS: LEVOTHYROXINE 50MCG TABLET (0.05MG) PO SCH (05:41)
[2020-11-07 06:00] VITALS: BP 117/47
[2020-11-07 06:27] LABS: BASO # 0.1 10^3/uL (0.0-0.2); BASO % 1.2 % (0.0-1.0); EOS # 0.5 10^3/uL (0.0-0.5); EOS % 8.4 % (0.0-3.0); HEMATOCRIT 41.7 % (36.0-47.0); HEMOGLOBIN 13.8 g/dl (12.0-15.5); LYMPH # 2.8 10^3/uL (1.5-5.0); LYMPH % 49.5 % (24.0-44.0); MEAN CORPUSCULAR HEMOGLOBIN 29.9 pg (27.0-33.0); MEAN CORPUSCULAR HGB CONC 33.1 g/dl (32.0-36.5); MEAN CORPUSCULAR VOLUME 90.5 fl (80.0-96.0); MONO # 0.8 10^3/uL (0.0-0.8); MONO % 13.1 % (2.0-8.0); NEUTROPHILS # 1.6 10^3/uL (1.5-8.5); NEUTROPHILS % 27.3 % (36.0-66.0); PLATELET COUNT, AUTOMATED 113 10^3/uL (150-450); RED BLOOD COUNT 4.61 10^6/uL (4.00-5.40); WHITE BLOOD COUNT 5.7 10^3/uL (4.0-10.0)
[2020-11-07 06:43] LABS: CALCIUM LEVEL 8.1 MG/DL (8.8-10.2); CREATININE FOR GFR 1.07 MG/DL (0.55-1.30); GLOMERULAR FILTRATION RATE 52.4 (>32); POTASSIUM SERUM 3.9 MEQ/L (3.5-5.1)
[2020-11-07] MEDS: PANTOPRAZOLE 40MG VIAL (C9113 PER 1) IV SCH (09:04)
[2020-11-07] MEDS: CALCIUM/VITAMIN D 500 MG TAB PO SCH (09:04)
[2020-11-07] MEDS: ASPIRIN 81MG ENTERIC TABLET PO SCH (09:04)
[2020-11-07] MEDS: CLOPIDOGREL 75 MG TAB PO SCH (09:04)
[2020-11-07] MEDS: HEPARIN SOD (PORCINE) 5000UNITS/ML 1ML VIAL/SYRINGE SC SCH (09:04)
[2020-11-07] MEDS: TIMOLOL MALEATE 0.5% OPHTH SOLN 5 ML OU SCH (09:05)
[2020-11-07] MEDS: KCL 20MEQ IN D5/0.45NS 1000ML 1,000 ML IV SCH (09:05)
[2020-11-07] MEDS ORDERED: RAME8TAB2 PO (10:27)
[2020-11-07] MEDS ORDERED: SUCR1ORA PO (10:27)
[2020-11-07] MEDS ORDERED: PROT1TAB2 PO (10:27)
--- NOTE | 2020-11-07 10:50 | IPNPDOC ---
Text Note Date of Service The patient was seen on 11/07/20. NOTE Gen. surgery. Dr. Fishman The patient is a 80-year-old female with progressive dysphagia status post EGD 11/04/20 with esophageal stenosis, status post dilation. Patient was advanced to soft diet 11/06 and states she has been tolerating. She states she had macaroni and cheese and spaghetti yesterday. This morning she does report some nausea. Denies vomiting. Afebrile, VSS Awake and alert, resting in bed Lungs clear anteriorly S1-S2 regular rate and rhythm Abdomen is soft, nontender, nondistended. Assessment/plan 80y/o s/p EGD with dilation of distal esophageal benign appearing stricture. Patient is tolerating soft diet. Gastric biopsy pending. Continue to encourage ambulation. VS,Fishbone, I+O VS, Fishbone, I+O Laboratory Tests 11/07/20 05:58 Vital Signs Date Time Temp Pulse Resp B/P (MAP) Pulse Ox O2 Delivery O2 Flow Rate FiO2 11/07/20 09:13 64 127/60 11/07/20 06:00 97.8 18 97 Room Air I&O- Last 24 Hours up to 6 AM 11/07/20 06:00 Intake Total 2580 ml Output Total 2400 ml Balance 180 ml Bambi Beck Nov 07, 2020 10:50
--- NOTE | 2020-11-07 13:37 | DSES ---
DISCHARGE SUMMARY DATE OF ADMISSION: 11/02/2020 DATE OF DISCHARGE: 11/07/2020 (Being discharged to ARU) PRINCIPAL DIAGNOSIS: 1. Dehydration secondary to esophageal stenosis for oral intake. 2. Acute kidney injury. 3. Anion gap metabolic acidosis secondary to dehydration and starvation. 4. Hypokalemia. 5. Hypertension. 6. Hypothyroidism. 7. Esophagogastroduodenoscopy with esophageal dilatation, Dr. Fishman on 11/04 (GI pathology pending at discharge); Gastritis with bleeding noted HISTORY: The patient was admitted dehydrated; she could not take oral intake well because of physical condition. HOSPITAL COURSE: She was admitted to a medical bed, rehydrated. Renal function returned to baseline. Creatinine went from 1.4 to 0.[address] Fishman did an EGD and dilated her esophagus. Her oral intake improved and for the last few days she has been eating increasingly well without swallowing difficulties. She is being transferred ARU today. The day of discharge vital signs are stable. Lungs are clear. Abdomen is soft, nontender. No peripheral edema. LABORATORY: Sodium 144, potassium 3.9, BUN 3, creatinine 1.0, glucose 93, white count 5.7, hemoglobin 13.8, platelets 113. Ketones were elevated on admission from starvation. DISPOSITION: She is being discharged today going to ARU. She is on Toprol XL 50 mg q 8 hours, Rozerem 8 mg every night at bedtime, Protonix 40 mg by mouth twice a day, Carafate 1 mg at meals and at bedtime, aspirin 81 mg daily, Plavix 75 mg daily, levothyroxine 50 mg daily, various eye drops, Tylenol as needed. Diet is being advanced as tolerated by surgery. Activity as tolerated. No pending labs at this time except the pathology from her esophagogastroduodenoscopy (EGD) MTDD
[2020-11-07 17:11] VITALS: BP 161/65
[2020-11-08 21:07] LABS: FATS NEUTRAL Normal (.); FATS TOTAL Normal (.)
== END 2020-11-07 18:00 | DRG 391 ==
LOC: M ED 16:32 → M ED INP 19:32 → ENRESERV 20:06 → M MSPAV 20:38
PROVIDERS: ADMIT Internal Medicine; ATTEND Family Medicine
PROC: 0DB98ZX Excision of Duodenum, Via Natural or Artificial Opening Endoscopic, Diagnostic (ICD-10-PCS; 2020-11-04)
PROC: 0D758ZZ Dilation of Esophagus, Via Natural or Artificial Opening Endoscopic (ICD-10-PCS; principal; 2020-11-04 15:00)
DX: K22.2 Esophageal obstruction (principal); K29.71 Gastritis, unspecified, with bleeding; E87.2 Acidosis; E87.6 Hypokalemia; I12.9 Hypertensive chronic kidney disease with stage 1 through stage 4 chronic kidney disease, or unspecified chronic kidney disease; E86.0 Dehydration; E78.5 Hyperlipidemia, unspecified; Z79.82 Long term (current) use of aspirin; Z79.899 Other long term (current) drug therapy; Z88.5 Allergy status to narcotic agent; Z88.8 Allergy status to other drugs, medicaments and biological substances; I95.1 Orthostatic hypotension; F03.90 Unspecified dementia, unspecified severity, without behavioral disturbance, psychotic disturbance, mood disturbance, and anxiety; Z66 Do not resuscitate; N18.9 Chronic kidney disease, unspecified; E83.42 Hypomagnesemia; K29.80 Duodenitis without bleeding; R13.10 Dysphagia, unspecified; K44.9 Diaphragmatic hernia without obstruction or gangrene

== ENCOUNTER 2020-11-07 13:49 | Inpatient (IN) | payer MEDICARE, BC, OTHER ==
[~2020-11-07] VITALS: Ht 152.4 cm; Wt 58.0 kg
[~2020-11-07 13:49] MED LIST: AMLO1TAB24 PO; ASPI81TA27 PO; CALC1TAB19 PO; CLOP75TA2 PO; LATA0.0015 OU; LEVO50TA5 PO; MECL-86 PO; METO1TAB33 PO; METO1TAB7 PO; PRAL1INJ SQ; PRES10CA2 PO; PROT1TAB2 PO; RAME8TAB2 PO; SUCR1ORA PO; TIMO0.5S39 OU
[2020-11-07 18:15] VITALS: BP 144/67
[2020-11-07] MEDS ORDERED: MECLIZINE 25 MG TABLET PO PRN (18:15)
[2020-11-07] MEDS ORDERED: ONDANSETRON 4 MG ORAL DISINTEGRATING TAB PO PRN (18:15)
[2020-11-07] MEDS ORDERED: ACETAMINOPHEN TAB 650MG DOSE (2X325MG) PO PRN (18:15)
[2020-11-07 20:00] VITALS: BP 157/80
[2020-11-07] MEDS: DOCUSATE SODIUM 100MG CAPSULE PO SCH (20:55)
[2020-11-07] MEDS: RAMELTEON 8 MG TAB (ROZEREM) PO PRN (20:55)
[2020-11-07] MEDS: SENNA 8.6 MG TAB (SENOKOT) PO SCH (20:55)
[2020-11-07] MEDS: PANTOPRAZOLE 40MG TAB (PROTONIX) PO SCH (20:55)
[2020-11-07] MEDS: amLODIPine 5 MG TAB PO SCH (20:55)
[2020-11-07] MEDS: SUCRALFATE 1 GM TAB PO SCH (20:55)
[2020-11-07] MEDS: METOPROLOL SUCC (TopROL XL) 50MG **XL** TAB PO SCH (20:59)
[2020-11-07] MEDS: REMEDY PHYTOPLEX Z-GUARD PASTE 113GM TUBE (FROM STOREROOM PRODUCT) TOP SCH (20:59)
[2020-11-07] MEDS: LATANOPROST 0.005% OPHTH SOLN 2.5 ML OU SCH (21:00)
[2020-11-07] MEDS ORDERED: HEPARIN SOD (PORCINE) 5000UNITS/ML 1ML VIAL/SYRINGE SC SCH (21:00)
--- NOTE | 2020-11-07 21:10 | HPEPDOC ---
Operational Review Sergeant Note DATE OF ADMISSION: 11-07-20 DATE OF SERVICE: 11-08-20 TIME OF ADMISSION: Please refer to physician's admission order. SOURCE OF ADMISSION INFORMATION:[facility] record and patient CHIEF COMPLAINT:weakness in setting of chronic diarrhea HISTORY OF PRESENT ILLNESS: 80F pm HTN, HLD, Hypothyroidism, CKD, with history of bowel resection presented to [facility] ED on 11-02-20 complaining nausea, vomiting, diarrhea, abdominal pain with weight loss and was diagnosed with starvation ketoacidosis. She underwent an esophagram study on 11-03-20 for dysphagia showing "Dysmotility of the esophagus with mild dilation of the mid body esophagus and tapers distally into a stricture" She then was seen by surgery who performed an EGD on 11-04-20 which showed esophageal stenosis, gastritis with hemorrhage and duodenitis. Following the esophageal dilatation she was placed on liquid diet which was advanced to soft diet with close surgical monitoring. She continued to have loose stools with work-up pending, was evaluated by therapy where she was noted to be weak with mobility and ADL impairments and deemed medically appropriate for discharge to ARU. Patient on initial exam noted to have left facial droop which she says she has had for years but is more pronounced since having lost weight. REVIEW OF SYSTEMS: The following is a completed review of systems and has been reviewed. Review of systems otherwise unremarkable. PAIN: Patient self reports no pain EYES: No recent vision changes EARS, NOSE, & THROAT: No throat pain, or dysphagia, or rhinorrhea CARDIOVASCULAR: Denies chest pain or palpitations PULMONARY: Denies shortness of breath GASTROINTESTINAL:+diarrhea GENITOURINARY: denies dysuria MUSCULOSKELETAL: generalized weakness NEUROLOGICAL:denies pareshtiesa or tremor HEMATOLOGICAL: denies easy bruising SKIN: denies rash PSYCHIATRIC: Unremarkable All other review of systems found to be negative. PAST MEDICAL HISTORY: as per HPI PAST SURGICAL HISTORY: as per HPI ALLERGIES: Please see below. MEDICATIONS: Please see below. SOCIAL HISTORY: blane etoh/illicit drugs/smoking DIET: soft PHYSICAL EXAMINATION: VITAL SIGNS: Please see below. GENERAL: Pleasant and cooperative. No acute distress. left facial droop HEENT: PERRL. Extraocular movements intact. Clear conjunctiva CARDIOVASCULAR: [Regular rate and rhythm. No murmurs, rubs, or gallops]. LUNGS: Clear to auscultation bilaterally. No wheezes. No rhonchi ABDOMEN: Soft, nontender, nondistended. Positive bowel sounds. Normal active bowel sounds NEUROLOGICAL: Alert and oriented times three. Cranial nerves II through XII grossly intact. Sensation grossly intact EXTREMITIES: 5\\5 strength bilateral upper extremities. 5\\5 strength right lower extremity. 5/5 strength in left lower extremity. SKIN: +external hemorrhoid, no sacral ulcer LABORATORY DATA: Please see below. IMAGING:Imaging documentation personally reviewed by record FUNCTIONAL STATUS: Premorbid: Independent with all activities of daily life as well as mobility On Admission: contact guard-standby assist for bed mobility, functional transfers, toileting, ambulating 35ft GOALS: Mod-I ambulating community distances, functional transfers, dressing, toileting, bathing ASSESSMENT:80-year-old F with past medical history of bowel resection who presents status post weakness in setting of chronic diarrhea and starvation ketoacidosis PLAN: 1. 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 cardiac- hx of HTN c/u metoprolol and amlodipine -CAD on ASA and Plavix -medicine consulted to assist in overall management 3. resp- monitor for infection 4. GI- recent EGD 11-04-20 showing hemorrhagic gastritis and duodenitis, c/u protonix BID and sucralfate, monitor H/H will order FOBT -esophageal stricture s/p dilatation, patient tolerating soft diet, will consult surgery to continue advancing -chronic diarrhea- work-up so far negative, patient denies having had colonocsopy in the past, will discuss with surgery -will start imodium and metamucil to bulk stools -will start IV reglan with meals to encourage po as patient with persistent nausea -preparation H and tucks for hemorrhoids 5. DVT ppx- teds, will hold of on heparin given risk for GI bleed while on ASA and Plavix, ambulating well 6. Endo- hypothyroidism, c/u synthroid 7. Pain- tylenol prn 8. Psych- insomnia- rozerem prn 9. DIspo- tbd POST ADMISSION PHYSICIAN EVALUATION: Medical and functional status: Description of medical status, medical assessment: As above. Rehabilitation diagnosis and current and prior cold morbid medical conditions as above. Risk of complications and plans to mitigate them as above. Description of functional status current status is as above. Prior status as above. Status compared to preadmission: There are no clinically significant differences between the patient's current status and the information described on the preadmission screening document. Treatment plan anticipated: Treatment plan is as described above. Required disciplines including physical therapy, occupational therapy, others as noted above. Intensity of services: 3 hours a day, 6 days a week. Special considerations: There are no specific special or safety considerations that would likely preclude immediate implementation of an intensive rehabilitat ion program or subsequently influence the plan of care. ATTESTATION: Considering all the information above, it is my best judgment that this patient requires intensive rehabilitation therapy as described above and an inpatient hospital environment due to the complexity of nursing, medical, and rehabilitation needs required by the patient. Furthermore, this patient can reasonably be expected to participate in an benefit from an inpatient rehabilitation stay with an interdisciplinary team approach to the delivery of rehabilitation care under the direction and supervision of rehabilitation physician. PROGNOSIS:good ESTIMATED LENGTH OF STAY:7-10days. PROJECTED DISCHARGE DESTINATION: Home with family support and any durable medical equipment required to increase functional safety and mobility. TIME SPENT COUNSELING AND COORDINATING INITIAL CARE: Greater than 70 minutes. Vital Signs Vital Sign - Last 24 Hours 11/07/20 11/07/20 11/07/20 18:15 20:55 20:59 Temp 98.7 Pulse 18 68 68 Resp 62 B/P (MAP) 144/67 (92) 157/80 157/80 Pulse Ox 99 O2 Delivery Room Air Home Medications Scheduled Amlodipine Besylate (Amlodipine Besylate) 5 Mg Tablet, 5 MG PO BID, (Reported) Aspirin (Aspirin EC) 81 Mg Tablet.dr, 81 MG PO DAILY, (Reported) Calcium Carbonate/Vitamin D3 (Calcium 600-Vit D3 800 Tablet) 1 Each Tablet, 1 TAB PO DAILY, (Reported) Clopidogrel Bisulfate (Clopidogrel) 75 Mg Tablet, 75 MG PO DAILY, (Reported) Latanoprost/Pf (Latanoprost 0.005% Eye Drop) 7.5 Ml Drops, 1 DROP OU QHS, (Reported) Levothyroxine Sodium (Levothyroxine Sodium) 50 Mcg Tablet, 50 MCG PO DAILY, (Reported) Metoprolol Succinate (Metoprolol Succinate) 50 Mg Tab.er.24h, 50 MG PO DAILY, (Reported) 150MG TOTAL DAILY Metoprolol Succinate (Metoprolol Succinate) 100 Mg Tab.er.24h, 100 MG PO DAILY, (Reported) 150MG TOTAL DAILY Pantoprazole Sodium (Protonix) 40 Mg Tablet.dr, 40 MG PO BID Sucralfate (Sucralfate) 1 Gm/10 Ml Oral.susp, 1 GM PO Q6H Timolol Maleate (Timolol Maleate) 0.5% 5ML Drop.daily, 1 DROP OU DAILY, (Repo rted) Vit C/E/Zn/Coppr/Lutein/Zeaxan (Preservision Areds 2 Softgel) 1 Each Capsule, 2 CAP PO DAILY, (Reported) Scheduled PRN Meclizine HCl (Meclizine HCl) 25 Mg Tablet, 25 MG PO TID PRN for DIZZINESS, (Reported) Ramelteon (Ramelteon) 8 Mg Tablet, 8 MG PO QHS PRN for INSOMNIA Allergies Coded Allergies: meperidine (Verified Allergy, Severe, SHOCK LIKE SYMPTOMS, 11/02/20) codeine (Verified Adverse Reaction, Mild, N/V, 11/02/20) fentanyl (Verified Adverse Reaction, Mild, PAIN FROM HEAD TO TOES, 11/02/20) A-FIB/CHADSVASC A-FIB History Current/History of A-Fib/PAF?: No Current PO Anticoag Therapy: No GERRI QUISPE MD Nov 07, 2020 21:10
[2020-11-08 05:18] VITALS: BP 104/53
[2020-11-08] MEDS: METOPROLOL SUCC (TopROL XL) 50MG **XL** TAB PO SCH ×3 (06:00→21:22)
[2020-11-08] MEDS: LEVOTHYROXINE 50MCG TABLET (0.05MG) PO SCH (06:14)
[2020-11-08 07:06] LABS: BASO # 0.1 10^3/uL (0.0-0.2); BASO % 0.9 % (0.0-1.0); EOS # 0.5 10^3/uL (0.0-0.5); EOS % 6.6 % (0.0-3.0); HEMATOCRIT 40.3 % (36.0-47.0); HEMOGLOBIN 13.3 g/dl (12.0-15.5); LYMPH # 3.1 10^3/uL (1.5-5.0); LYMPH % 44.6 % (24.0-44.0); MEAN CORPUSCULAR HEMOGLOBIN 30.2 pg (27.0-33.0); MEAN CORPUSCULAR VOLUME 91.4 fl (80.0-96.0); MONO % 13.8 % (2.0-8.0); NEUTROPHILS # 2.4 10^3/uL (1.5-8.5); NEUTROPHILS % 33.8 % (36.0-66.0); PLATELET COUNT, AUTOMATED 117 10^3/uL (150-450); RED BLOOD COUNT 4.41 10^6/uL (4.00-5.40)
[2020-11-08 07:42] LABS: ALBUMIN 2.4 GM/DL (3.2-5.2); BILIRUBIN,TOTAL 0.3 MG/DL (0.2-1.0); CALCIUM LEVEL 8.8 MG/DL (8.8-10.2); CREATININE FOR GFR 1.23 MG/DL (0.55-1.30); GLOMERULAR FILTRATION RATE 44.6 (>32); POTASSIUM SERUM 4.4 MEQ/L (3.5-5.1); TOTAL PROTEIN 4.7 GM/DL (6.4-8.2)
[2020-11-08] MEDS: TIMOLOL MALEATE 0.5% OPHTH SOLN 5 ML OU SCH (08:59)
[2020-11-08] MEDS: CLOPIDOGREL 75 MG TAB PO SCH (09:00)
[2020-11-08] MEDS: DOCUSATE SODIUM 100MG CAPSULE PO SCH ×2 (09:00→21:25)
[2020-11-08] MEDS: ASPIRIN 81MG ENTERIC TABLET PO SCH (09:00)
[2020-11-08] MEDS: CALCIUM/VITAMIN D 500 MG TAB PO SCH (09:00)
[2020-11-08] MEDS: PANTOPRAZOLE 40MG TAB (PROTONIX) PO SCH ×2 (09:00→21:22)
[2020-11-08] MEDS: amLODIPine 5 MG TAB PO SCH ×2 (09:01→21:22)
[2020-11-08] MEDS: SUCRALFATE 1 GM TAB PO SCH ×4 (09:02→21:00)
[2020-11-08] MEDS: REMEDY PHYTOPLEX Z-GUARD PASTE 113GM TUBE (FROM STOREROOM PRODUCT) TOP SCH ×3 (09:02→21:26)
[2020-11-08] MEDS ORDERED: LOPERAMIDE 2 MG CAPLET PO PRN (11:40)
[2020-11-08] MEDS: METAMUCIL (PSYLLIUM) PACKET PO SCH (11:49)
[2020-11-08] MEDS ORDERED: NS 1,000 ML IV SCH (13:00)
--- NOTE | 2020-11-08 13:45 | IPNPDOC ---
Text Note Date of Service The patient was seen on 11/08/20. NOTE Subjective: Patient is an 80-year-old with a PMHx of HTN, DLP, Hypothyroidism, CKD3 , who presented to the emergency room with nausea, vomiting, diarrhea for 2 months duration. Upon arrival to emergency room, she was found to have acute kidney injury and lactic acidosis. She was admitted to the hospital service for further evaluation and treatment. General surgery were called on consultation was subsequently performed an endoscopy which revealed esophageal stenosis which was dilated. Patient was admitted on 11/02 and discharged on 11/07 to ARU for continued physical therapy and occupational therapy. Patient was seen and examined at the bedside. Patient denies any chest pain, shortness of breath, palpitations, nausea, vomiting, abdominal pain or urinary discomfort. Objective: Vitals (See below) General: Lying in bed, no acute distress, appears comfortable, Awake / Alert HEENT: NC, AT CVS: +S1S2 Lungs: Fair air entry b/l, no appreciated wheezing, rhonchi or rales Abdomen: Soft, ND, NT Extremities: - Edema, - Calf tenderness Assessment and plan: s/p Poor oral intake / Nausea and vomiting - possibly 2/2 esophageal stenosis - s/p EGD and Dilation with Dr. Fishman on 11/04 - Currently tolerating oral intake Deconditioning - c/w PT and OT as per ARU s/p ADELAIDA on CKD3 s/p AG metabolic acidosis s/p Hypokalemia HTN - BP well controlled - c/w Amlodipine and Metoprolol Femoral bypass - c/w ASA and Plavix Hypothyroidism - c/w Levothyroxine GI prophylaxis - c/w Protonix and Carafate DVT prophylaxis - c/w TEDs/ Sequentials Disposition: - As per ARU VS,Fishbone, I+O VS, Fishbone, I+O Laboratory Tests 11/08/20 06:47 Vital Signs Date Time Temp Pulse Resp B/P (MAP) Pulse Ox O2 Delivery O2 Flow Rate FiO2 11/08/20 09:01 60 137/58 11/08/20 05:18 98.8 17 96 Room Air I&O- Last 24 Hours up to 6 AM 11/08/20 06:00 Intake Total 0 ml Output Total 0 ml Balance 0 ml INGA BRICEÑO MD Nov 08, 2020 13:45
[2020-11-08 14:00] VITALS: BP 137/63
[2020-11-08] MEDS: METOCLOPRAMIDE INJ 10MG/2ML VIAL (J2765 PER 1) IV SCH ×2 (14:23→17:08)
[2020-11-08] MEDS: SALIVA SUBSTITUTE(MOUTHKOTE) BTL MT SCH ×3 (14:23→21:35)
[2020-11-08] MEDS: MAGIC MOUTHWASH SUSPENSION BTL SSP SCH (17:08)
[2020-11-08 20:15] VITALS: BP 129/64
[2020-11-08] MEDS: PREPARATION H SUPP (HEMORRHOID) PR SCH (21:00)
[2020-11-08] MEDS: LATANOPROST 0.005% OPHTH SOLN 2.5 ML OU SCH (21:23)
[2020-11-08] MEDS: SENNA 8.6 MG TAB (SENOKOT) PO SCH (21:35)
[2020-11-09] MEDS: LEVOTHYROXINE 50MCG TABLET (0.05MG) PO SCH (05:32)
[2020-11-09] MEDS: METOPROLOL SUCC (TopROL XL) 50MG **XL** TAB PO SCH ×3 (05:33→21:06)
[2020-11-09 06:08] VITALS: BP 111/56
[2020-11-09] MEDS: amLODIPine 5 MG TAB PO SCH ×2 (09:00→21:07)
[2020-11-09] MEDS: TIMOLOL MALEATE 0.5% OPHTH SOLN 5 ML OU SCH (09:54)
[2020-11-09] MEDS: MAGIC MOUTHWASH SUSPENSION BTL SSP SCH ×3 (09:54→16:30)
[2020-11-09] MEDS: SALIVA SUBSTITUTE(MOUTHKOTE) BTL MT SCH ×4 (09:54→21:08)
[2020-11-09] MEDS: METAMUCIL (PSYLLIUM) PACKET PO SCH (09:55)
[2020-11-09] MEDS: ASPIRIN 81MG ENTERIC TABLET PO SCH (09:55)
[2020-11-09] MEDS: DOCUSATE SODIUM 100MG CAPSULE PO SCH ×2 (09:55→21:07)
[2020-11-09] MEDS: CLOPIDOGREL 75 MG TAB PO SCH (09:55)
[2020-11-09] MEDS: CALCIUM/VITAMIN D 500 MG TAB PO SCH (09:55)
[2020-11-09] MEDS: SUCRALFATE 1 GM TAB PO SCH ×4 (09:56→21:06)
[2020-11-09] MEDS: METOCLOPRAMIDE INJ 10MG/2ML VIAL (J2765 PER 1) IV SCH ×3 (09:56→16:30)
[2020-11-09] MEDS: PREPARATION H SUPP (HEMORRHOID) PR SCH ×2 (09:56→21:06)
[2020-11-09] MEDS: PANTOPRAZOLE 40MG TAB (PROTONIX) PO SCH ×2 (09:56→21:06)
[2020-11-09] MEDS: REMEDY PHYTOPLEX Z-GUARD PASTE 113GM TUBE (FROM STOREROOM PRODUCT) TOP SCH ×3 (10:25→21:09)
[2020-11-09 14:00] VITALS: BP 115/56
--- NOTE | 2020-11-09 19:47 | IPNPDOC ---
PM&R Progress Note DATE OF SERVICE: Nov 09, 2020 [employer] Progress Note Subjective: Patient reporting she had one stool today and it was paritally formed, she is eating better and thinks the IV reglan is helping. REVIEW OF SYSTEMS: The following is a completed review of systems and has been reviewed. Review of systems otherwise unremarkable. PAIN: Patient self reports no pain EYES: No recent vision changes EARS, NOSE, & THROAT: No throat pain, or dysphagia, or rhinorrhea CARDIOVASCULAR: Denies chest pain or palpitations PULMONARY: Denies shortness of breath GASTROINTESTINAL:+diarrhea (improving) GENITOURINARY: denies dysuria MUSCULOSKELETAL: generalized weakness NEUROLOGICAL:denies pareshtiesa or tremor HEMATOLOGICAL: denies easy bruising SKIN: denies rash PSYCHIATRIC: Unremarkable All other review of systems found to be negative. PHYSICAL EXAMINATION: VITAL SIGNS: Please see below. GENERAL: Pleasant and cooperative. No acute distress. left facial droop HEENT: PERRL. Extraocular movements intact. Clear conjunctiva CARDIOVASCULAR: [Regular rate and rhythm. No murmurs, rubs, or gallops]. LUNGS: Clear to auscultation bilaterally. No wheezes. No rhonchi ABDOMEN: Soft, nontender, nondistended. Positive bowel sounds. Normal active bowel sounds NEUROLOGICAL: Alert and oriented times three. Cranial nerves II through XII grossly intact. Sensation grossly intact EXTREMITIES: 5\5 strength bilateral upper extremities. 5\5 strength right lower extremity. 5/5 strength in left lower extremity. SKIN: +external hemorrhoid, no sacral ulcer ASSESSMENT:80-year-old F with past medical history of bowel resection who presents status post weakness in setting of chronic diarrhea and starvation ketoacidosis PLAN: 1. 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 cardiac- hx of HTN c/u metoprolol and amlodipine -CAD on ASA and Plavix -medicine consulted to assist in overall management 3. resp- monitor for infection 4. GI- recent EGD 11-04-20 showing hemorrhagic gastritis and duodenitis, c/u protonix BID and sucralfate, monitor H/H FOBT positive, with source identified on recent EGD -esophageal stricture s/p dilatation, patient tolerating soft diet, discussed with surgery, ok to advance to regular diet -chronic diarrhea- work-up so far negative, patient denies having had colonocsopy in the past, will refer for outpatient colonoscopy- patient reporting paritally formed stool today since starting imodium and metamucil -c/u IV reglan with meals to encourage po-patients nausea improving, will transition to po prior to d/c -preparation H and tucks for hemorrhoids 5. DVT ppx- teds, will hold of on heparin given risk for GI bleed while on ASA and Plavix, ambulating well 6. Endo- hypothyroidism, c/u synthroid 7. Pain- tylenol prn 8. Psych- insomnia- rozerem prn 9. DIspo- tbd Allergies Coded Allergies: meperidine (Verified Allergy, Severe, SHOCK LIKE SYMPTOMS, 11/02/20) codeine (Verified Adverse Reaction, Mild, N/V, 11/02/20) fentanyl (Verified Adverse Reaction, Mild, PAIN FROM HEAD TO TOES, 11/02/20) Vital Signs Vital Signs Date Time Temp Pulse Resp B/P (MAP) Pulse Ox O2 Delivery O2 Flow Rate FiO2 11/09/20 14:10 66 115/56 11/09/20 14:00 97.5 16 99 Room Air Microbiology Microbiology 11/08/20 Stool Occult Blood (HUY) - Final, Complete Current Medications Current Medications Current Medications Medications (Trade) Dose Ordered Sig/Brett Route PRN Reason Start Time Stop Time Status Last Admin Dose Admin Acetaminophen (Tylenol Tab) 650 mg Q4HP PRN PO fever/MILD PAIN (PS 1-4) 11/07/20 18:15 Amlodipine Besylate (Norvasc) 5 mg BID PO 11/07/20 21:00 11/08/20 21:22 Aspirin (Ecotrin) 81 mg DAILY PO 11/08/20 09:00 11/09/20 09:55 Calcium/Vitamin D (Oscal D) 500 mg DAILY PO 11/08/20 09:00 11/09/20 09:55 Clopidogrel Bisulfate (PLAVix) 75 mg DAILY PO 11/08/20 09:00 11/09/20 09:55 Docusate Sodium (Colace) 100 mg BID PO 11/07/20 21:00 11/09/20 09:55 Heparin Sodium (Porcine) (Heparin) 5,000 units Q12H SC 11/07/20 21:00 11/07/20 21:52 DC 11/07/20 20:55 Latanoprost (Xalatan 0.005% Op Soln) 1 drop QHS OU 11/07/20 21:00 11/08/20 21:23 Levothyroxine Sodium (Synthroid) 50 mcg DAILY@06 PO 11/08/20 06:00 11/09/20 05:32 Lidocaine/ Diphenhydr/Alum/ Mg/Simeth (Magic Mouthwash) 5ML AC SSP 11/08/20 17:30 11/09/20 16:30 Loperamide HCl (Imodium) 2 mg ASDIRECTED PRN PO DIARRHEA 11/08/20 11:40 11/08/20 11:49 Meclizine HCl (Antivert) 25 mg TIDP PRN PO DIZZINESS 11/07/20 18:15 Metoclopramide HCl (REGLAN INJection) 5 mg AC IV 11/08/20 13:00 11/09/20 16:30 Metoprolol Succinate (TopROL XL) 50 mg Q8H PO 11/07/20 22:00 11/09/20 14:10 Ondansetron HCl (Zofran Odt) 4 mg Q4HP PRN PO NAUSEA OR VOMITING 11/07/20 18:15 11/08/20 11:49 Pantoprazole Sodium (Protonix) 40 mg BID PO 11/07/20 21:00 11/09/20 09:56 Phenylephrine HCl (Preparation H Supp) 1 sup BID OR 11/08/20 21:00 11/09/20 09:56 Psyllium Hydrophilic Mucilloid (Metamucil) 1 pkt DAILY PO 11/08/20 11:40 11/09/20 09:55 Ramelteon (Rozerem) 8 mg QHS PRN PO INSOMNIA 11/07/20 18:15 11/07/20 20:55 Saliva Substitute (Mouthkote) APPLY TO MOUTH QID MT 11/08/20 13:00 11/09/20 16:29 Senna (Senokot) 1 tab QHS PO 11/07/20 21:00 11/08/20 21:35 Sodium Chloride 1,000 ml @ 75 mls/hr [id number] IV 11/08/20 13:00 11/09/20 02:19 DC 11/08/20 14:21 Sucralfate (Carafate) 1 gm ACHS PO 11/07/20 21:00 11/09/20 16:30 Timolol Maleate (Timoptic 0.5% Ophth Astrid) 1 drop DAILY OU 11/08/20 09:00 11/09/20 09:54 GERRI QUISPE MD Nov 09, 2020 19:47
[2020-11-09 20:00] VITALS: BP 137/63
[2020-11-09] MEDS: SENNA 8.6 MG TAB (SENOKOT) PO SCH (21:07)
[2020-11-09] MEDS: LATANOPROST 0.005% OPHTH SOLN 2.5 ML OU SCH (21:40)
[2020-11-10] MEDS: LEVOTHYROXINE 50MCG TABLET (0.05MG) PO SCH (05:33)
[2020-11-10] MEDS: METOPROLOL SUCC (TopROL XL) 50MG **XL** TAB PO SCH ×3 (05:34→21:05)
[2020-11-10 05:48] VITALS: BP 121/58
[2020-11-10] MEDS: METOCLOPRAMIDE INJ 10MG/2ML VIAL (J2765 PER 1) IV SCH ×3 (07:30→16:54)
[2020-11-10] MEDS: MULTIVITAMINS CHILDREN'S CHEWABLE TABLET PO SCH (09:00)
[2020-11-10] MEDS: CLOPIDOGREL 75 MG TAB PO SCH (09:47)
[2020-11-10] MEDS: SUCRALFATE 1 GM TAB PO SCH (09:47)
[2020-11-10] MEDS: ASPIRIN 81MG ENTERIC TABLET PO SCH (09:47)
[2020-11-10] MEDS: PANTOPRAZOLE 40MG TAB (PROTONIX) PO SCH ×2 (09:47→21:05)
[2020-11-10] MEDS: CALCIUM/VITAMIN D 500 MG TAB PO SCH (09:47)
[2020-11-10] MEDS: PREPARATION H SUPP (HEMORRHOID) PR SCH ×2 (09:48→21:04)
[2020-11-10] MEDS: METAMUCIL (PSYLLIUM) PACKET PO SCH (09:48)
[2020-11-10] MEDS: DOCUSATE SODIUM 100MG CAPSULE PO SCH ×2 (09:48→21:05)
[2020-11-10] MEDS: amLODIPine 5 MG TAB PO SCH ×2 (09:48→21:05)
[2020-11-10] MEDS: SALIVA SUBSTITUTE(MOUTHKOTE) BTL MT SCH ×4 (09:49→21:08)
[2020-11-10] MEDS: REMEDY PHYTOPLEX Z-GUARD PASTE 113GM TUBE (FROM STOREROOM PRODUCT) TOP SCH ×3 (09:49→21:05)
[2020-11-10] MEDS: MAGIC MOUTHWASH SUSPENSION BTL SSP SCH ×3 (09:49→16:55)
[2020-11-10] MEDS: TIMOLOL MALEATE 0.5% OPHTH SOLN 5 ML OU SCH (09:50)
--- NOTE | 2020-11-10 10:29 | IPNPDOC ---
PM&R Progress Note DATE OF SERVICE: Nov 10, 2020 [employer] Progress Note Subjective: REVIEW OF SYSTEMS: The following is a completed review of systems and has been reviewed. Review of systems otherwise unremarkable. PAIN: Patient self reports no pain EYES: No recent vision changes EARS, NOSE, & THROAT: No throat pain, or dysphagia, or rhinorrhea CARDIOVASCULAR: Denies chest pain or palpitations PULMONARY: Denies shortness of breath GASTROINTESTINAL:+diarrhea (improving) GENITOURINARY: denies dysuria MUSCULOSKELETAL: generalized weakness NEUROLOGICAL:denies pareshtiesa or tremor HEMATOLOGICAL: denies easy bruising SKIN: denies rash PSYCHIATRIC: Unremarkable All other review of systems found to be negative. PHYSICAL EXAMINATION: VITAL SIGNS: Please see below. GENERAL: Pleasant and cooperative. No acute distress. left facial droop HEENT: PERRL. Extraocular movements intact. Clear conjunctiva CARDIOVASCULAR: [Regular rate and rhythm. No murmurs, rubs, or gallops]. LUNGS: Clear to auscultation bilaterally. No wheezes. No rhonchi ABDOMEN: Soft, nontender, nondistended. Positive bowel sounds. Normal active bowel sounds NEUROLOGICAL: Alert and oriented times three. Cranial nerves II through XII grossly intact. Sensation grossly intact EXTREMITIES: 5\5 strength bilateral upper extremities. 5\5 strength right lower extremity. 5/5 strength in left lower extremity. SKIN: +external hemorrhoid, no sacral ulcer ASSESSMENT:80-year-old F with past medical history of bowel resection who presents status post weakness in setting of chronic diarrhea and starvation ketoacidosis PLAN: 1. rehb- PT/OT advance mobility and ADLs, strengthen/stretch/maintain ROM all 4 limbs TIER OVER- will consider eval for dysphagia if persists despite esophageal dilatation 2. cardiac- hx of HTN c/u metoprolol and amlodipine -CAD on ASA and Plavix -medicine consulted to assist in overall management 3. resp- monitor for infection 4. GI- recent EGD 11-04-20 showing hemorrhagic gastritis and duodenitis, c/u protonix BID and sucralfate, monitor H/H FOBT positive, with source identified on recent EGD -esophageal stricture s/p dilatation, patient tolerating soft diet, discussed with surgery, ok to advance to regular diet -chronic diarrhea- work-up so far negative, patient denies having had colonocsopy in the past, will refer for outpatient colonoscopy- patient reporting paritally formed stool today since starting imodium and metamucil -c/u IV reglan with meals to encourage po-patients nausea improving, will transition to po prior to d/c -preparation H and tucks for hemorrhoids 5. DVT ppx- teds, will hold of on heparin given risk for GI bleed while on ASA and Plavix, ambulating well 6. Endo- hypothyroidism, c/u synthroid 7. Pain- tylenol prn 8. Psych- insomnia- rozerem prn 9. DIspo- tbd Allergies Coded Allergies: meperidine (Verified Allergy, Severe, SHOCK LIKE SYMPTOMS, 11/02/20) codeine (Verified Adverse Reaction, Mild, N/V, 11/02/20) fentanyl (Verified Adverse Reaction, Mild, PAIN FROM HEAD TO TOES, 11/02/20) Vital Signs Vital Signs Date Time Temp Pulse Resp B/P (MAP) Pulse Ox O2 Delivery O2 Flow Rate FiO2 11/10/20 05:48 97.6 61 18 121/58 (79) 95 Room Air Microbiology Microbiology 11/08/20 Stool Occult Blood (HUY) - Final, Complete Current Medications Current Medications Current Medications Medications (Trade) Dose Ordered Sig/Brett Route PRN Reason Start Time Stop Time Status Last Admin Dose Admin Acetaminophen (Tylenol Tab) 650 mg Q4HP PRN PO fever/MILD PAIN (PS 1-4) 11/07/20 18:15 Amlodipine Besylate (Norvasc) 5 mg BID PO 11/07/20 21:00 11/10/20 09:48 Aspirin (Ecotrin) 81 mg DAILY PO 11/08/20 09:00 11/10/20 09:47 Calcium/Vitamin D (Oscal D) 500 mg DAILY PO 11/08/20 09:00 11/10/20 09:47 Clopidogrel Bisulfate (PLAVix) 75 mg DAILY PO 11/08/20 09:00 11/10/20 09:47 Docusate Sodium (Colace) 100 mg BID PO 11/07/20 21:00 11/10/20 09:48 Heparin Sodium (Porcine) (Heparin) 5,000 units Q12H SC 11/07/20 21:00 11/07/20 21:52 DC 11/07/20 20:55 Latanoprost (Xalatan 0.005% Op Soln) 1 drop QHS OU 11/07/20 21:00 11/09/20 21:40 Levothyroxine Sodium (Synthroid) 50 mcg DAILY@06 PO 11/08/20 06:00 11/10/20 05:33 Lidocaine/ Diphenhydr/Alum/ Mg/Simeth (Magic Mouthwash) 5ML AC SSP 11/08/20 17:30 11/10/20 09:49 Loperamide HCl (Imodium) 2 mg ASDIRECTED PRN PO DIARRHEA 11/08/20 11:40 11/08/20 11:49 Meclizine HCl (Antivert) 25 mg TIDP PRN PO DIZZINESS 11/07/20 18:15 Metoclopramide HCl (REGLAN INJection) 5 mg AC IV 11/08/20 13:00 11/09/20 16:30 Metoprolol Succinate (TopROL XL) 50 mg Q8H PO 11/07/20 22:00 11/10/20 05:34 Ondansetron HCl (Zofran Odt) 4 mg Q4HP PRN PO NAUSEA OR VOMITING 11/07/20 18:15 11/08/20 11:49 Pantoprazole Sodium (Protonix) 40 mg BID PO 11/07/20 21:00 11/10/20 09:47 Phenylephrine HCl (Preparation H Supp) 1 sup BID OH 11/08/20 21:00 11/10/20 09:48 Psyllium Hydrophilic Mucilloid (Metamucil) 1 pkt DAILY PO 11/08/20 11:40 11/10/20 09:48 Ramelteon (Rozerem) 8 mg QHS PRN PO INSOMNIA 11/07/20 18:15 11/07/20 20:55 Saliva Substitute (Mouthkote) APPLY TO MOUTH QID MT 11/08/20 13:00 11/10/20 09:49 Senna (Senokot) 1 tab QHS PO 11/07/20 21:00 11/09/20 21:07 Sodium Chloride 1,000 ml @ 75 mls/hr [id number] IV 11/08/20 13:00 11/09/20 02:19 DC 11/08/20 14:21 Sucralfate (Carafate) 1 gm ACHS PO 11/07/20 21:00 11/10/20 09:47 Timolol Maleate (Timoptic 0.5% Ophth Astrid) 1 drop DAILY OU 11/08/20 09:00 11/10/20 09:50 GERRI QUISPE MD Nov 10, 2020 10:28
[2020-11-10] MEDS: SUCRALFATE SUSP 1GM/10ML UD PO SCH ×3 (12:00→21:05)
[2020-11-10 13:57] VITALS: BP 109/53
[2020-11-10 20:00] VITALS: BP 116/59
[2020-11-10] MEDS: SENNA 8.6 MG TAB (SENOKOT) PO SCH (21:05)
[2020-11-10] MEDS: LATANOPROST 0.005% OPHTH SOLN 2.5 ML OU SCH (21:08)
[2020-11-11] MEDS: LEVOTHYROXINE 50MCG TABLET (0.05MG) PO SCH (05:50)
[2020-11-11] MEDS: METOPROLOL SUCC (TopROL XL) 50MG **XL** TAB PO SCH ×3 (05:51→21:05)
[2020-11-11 06:00] VITALS: BP 135/70
[2020-11-11 07:39] LABS: BASO # 0.1 10^3/uL (0.0-0.2); BASO % 0.9 % (0.0-1.0); EOS # 0.3 10^3/uL (0.0-0.5); EOS % 3.7 % (0.0-3.0); HEMATOCRIT 37.6 % (36.0-47.0); HEMOGLOBIN 12.4 g/dl (12.0-15.5); LYMPH # 2.4 10^3/uL (1.5-5.0); MEAN CORPUSCULAR HEMOGLOBIN 30.3 pg (27.0-33.0); MEAN CORPUSCULAR VOLUME 91.9 fl (80.0-96.0); MONO % 16.9 % (2.0-8.0); NEUTROPHILS # 4.7 10^3/uL (1.5-8.5); NEUTROPHILS % 52.1 % (36.0-66.0); PLATELET COUNT, AUTOMATED 116 10^3/uL (150-450); RED BLOOD COUNT 4.09 10^6/uL (4.00-5.40)
[2020-11-11 07:56] LABS: CALCIUM LEVEL 8.7 MG/DL (8.8-10.2); CREATININE FOR GFR 1.35 MG/DL (0.55-1.30); GLOMERULAR FILTRATION RATE 40.1 (>32); POTASSIUM SERUM 3.8 MEQ/L (3.5-5.1)
[2020-11-11 08:20] LABS: WHITE BLOOD COUNT 9.1 10^3/uL (4.0-10.0)
[2020-11-11 08:21] LABS: MONO # 1.5 10^3/uL (0.0-0.8)
[2020-11-11] MEDS: PREPARATION H SUPP (HEMORRHOID) PR SCH ×2 (08:28→21:02)
[2020-11-11] MEDS: MAGIC MOUTHWASH SUSPENSION BTL SSP SCH ×3 (08:28→17:47)
[2020-11-11] MEDS: CALCIUM/VITAMIN D 500 MG TAB PO SCH (08:28)
[2020-11-11] MEDS: MULTIVITAMINS CHILDREN'S CHEWABLE TABLET PO SCH (08:28)
[2020-11-11] MEDS: CLOPIDOGREL 75 MG TAB PO SCH (08:28)
[2020-11-11] MEDS: PANTOPRAZOLE 40MG TAB (PROTONIX) PO SCH ×2 (08:28→21:02)
[2020-11-11] MEDS: DOCUSATE SODIUM 100MG CAPSULE PO SCH ×2 (08:28→21:02)
[2020-11-11] MEDS: ASPIRIN 81MG ENTERIC TABLET PO SCH (08:28)
[2020-11-11] MEDS: METOCLOPRAMIDE INJ 10MG/2ML VIAL (J2765 PER 1) IV SCH (08:28)
[2020-11-11] MEDS: METAMUCIL (PSYLLIUM) PACKET PO SCH (08:28)
[2020-11-11] MEDS: SUCRALFATE SUSP 1GM/10ML UD PO SCH ×4 (08:28→21:02)
[2020-11-11] MEDS: REMEDY PHYTOPLEX Z-GUARD PASTE 113GM TUBE (FROM STOREROOM PRODUCT) TOP SCH ×3 (08:29→21:00)
[2020-11-11] MEDS: SALIVA SUBSTITUTE(MOUTHKOTE) BTL MT SCH ×4 (08:29→21:07)
[2020-11-11] MEDS: TIMOLOL MALEATE 0.5% OPHTH SOLN 5 ML OU SCH (08:29)
[2020-11-11] MEDS: amLODIPine 5 MG TAB PO SCH ×2 (08:37→21:03)
--- NOTE | 2020-11-11 08:39 | IPNPDOC ---
PM&R Progress Note Child Care Education Coordinator Progress Note DATE OF ADMISSION: Nov 07, 2020 at 18:31 INPATIENT REHABILITATION ADMISSION DAY: # SUBJECTIVE: Patient is a -year-old with . ALLERGIES: See Below MEDICATIONS: Reviewed, see below. OBJECTIVE: VITAL SIGNS: Please see below. PHYSICAL EXAMINATION: GENERAL: [Cachectic, well developed, sitting up in bed, no acute distress]. HEENT: [Normocephalic, atraumatic]. [No facial droop]. [Poor dentition, missing teeth. PERRL, EOMI]. CARDIOVASCULAR: [S1, S2, irregular rate]. [No lower limb edema or calf tenderness]. LUNGS: [Decreased breath sounds, coarse throughout]. ABDOMEN: [Soft, nontender, nondistended. Normoactive bowel sounds throughout]. MUSCULOSKELETAL: MMT: /5 strength proximally bilateral shoulder abduction, forward flexion and bilateral hip flexion. /5 strength bilateral elbow flexion, knee flexion, /5 bilateral elbow extension and knee extension. /5 hydropulper operator, dorsiflexion, plantar flexion. NEUROLOGICAL: [Alert and oriented times three]. [Answers all question appropriately]. SKIN: . LABORATORY DATA: Reviewed. Please see below. MICROBIOLOGY: Please see below. IMAGING: ASSESSMENT AND PLAN: 1. . 2. . 3. . TIME SPENT: Chart Review, examination and documentation minutes. Allergies Coded Allergies: meperidine (Verified Allergy, Severe, SHOCK LIKE SYMPTOMS, 11/02/20) codeine (Verified Adverse Reaction, Mild, N/V, 11/02/20) fentanyl (Verified Adverse Reaction, Mild, PAIN FROM HEAD TO TOES, 11/02/20) Vital Signs Vital Signs Date Time Temp Pulse Resp B/P (MAP) Pulse Ox O2 Delivery O2 Flow Rate FiO2 11/11/20 08:37 66 131/57 11/11/20 06:00 98.1 18 97 Room Air Laboratory Data CBC/BMP Laboratory Tests 11/11/20 07:12 Labs 24H Laboratory Tests 2 11/11/20 07:12: Immature Granulocyte % (Auto) 0.4, Neutrophils (%) (Auto) 52.1, Lymphocytes (%) (Auto) 26.0, Monocytes (%) (Auto) 16.9H, Eosinophils (%) (Auto) 3.7H, Basophils (%) (Auto) 0.9, Neutrophils # (Auto) 4.7, Lymphocytes # (Auto) 2.4, Monocytes # (Auto) 1.5H, Eosinophils # (Auto) 0.3, Basophils # (Auto) 0.1, Nucleated Red Blood Cells % (auto) 0.0, Anion Gap 6L, Glomerular Filtration Rate 40.1, Calcium Level 8.7L Microbiology Microbiology 11/08/20 Stool Occult Blood (HUY) - Final, Complete Current Medications Current Medications Current Medications Medications (Trade) Dose Ordered Sig/Brett Route PRN Reason Start Time Stop Time Status Last Admin Dose Admin Acetaminophen (Tylenol Tab) 650 mg Q4HP PRN PO fever/MILD PAIN (PS 1-4) 11/07/20 18:15 Amlodipine Besylate (Norvasc) 5 mg BID PO 11/07/20 21:00 11/11/20 08:37 Aspirin (Ecotrin) 81 mg DAILY PO 11/08/20 09:00 11/11/20 08:28 Calcium/Vitamin D (Oscal D) 500 mg DAILY PO 11/08/20 09:00 11/11/20 08:28 Clopidogrel Bisulfate (PLAVix) 75 mg DAILY PO 11/08/20 09:00 11/11/20 08:28 Docusate Sodium (Colace) 100 mg BID PO 11/07/20 21:00 11/11/20 08:28 Heparin Sodium (Porcine) (Heparin) 5,000 units Q12H SC 11/07/20 21:00 11/07/20 21:52 DC 11/07/20 20:55 Latanoprost (Xalatan 0.005% Op Soln) 1 drop QHS OU 11/07/20 21:00 11/10/20 21:08 Levothyroxine Sodium (Synthroid) 50 mcg DAILY@06 PO 11/08/20 06:00 11/11/20 05:50 Lidocaine/ Diphenhydr/Alum/ Mg/Simeth (Magic Mouthwash) 5ML AC SSP 11/08/20 17:30 11/11/20 08:28 Loperamide HCl (Imodium) 2 mg ASDIRECTED PRN PO DIARRHEA 11/08/20 11:40 11/08/20 11:49 Meclizine HCl (Antivert) 25 mg TIDP PRN PO DIZZINESS 11/07/20 18:15 Metoclopramide HCl (REGLAN INJection) 5 mg AC IV 11/08/20 13:00 11/11/20 08:37 DC 11/11/20 08:28 Metoclopramide HCl (Reglan) 5 mg AC PO 11/11/20 12:00 UNV Metoprolol Succinate (TopROL XL) 50 mg Q8H PO 11/07/20 22:00 11/11/20 05:51 Multivitamins (Fruity Chews-Children'S) 1 tab DAILY PO 11/10/20 09:00 11/11/20 08:28 Ondansetron HCl (Zofran Odt) 4 mg Q4HP PRN PO NAUSEA OR VOMITING 11/07/20 18:15 11/08/20 11:49 Pantoprazole Sodium (Protonix) 40 mg BID PO 11/07/20 21:00 11/11/20 08:28 Phenylephrine HCl (Preparation H Supp) 1 sup BID TX 11/08/20 21:00 11/11/20 08:28 Psyllium Hydrophilic Mucilloid (Metamucil) 1 pkt DAILY PO 11/08/20 11:40 11/11/20 08:28 Ramelteon (Rozerem) 8 mg QHS PRN PO INSOMNIA 11/07/20 18:15 11/07/20 20:55 Saliva Substitute (Mouthkote) APPLY TO MOUTH QID MT 11/08/20 13:00 11/10/20 21:08 Senna (Senokot) 1 tab QHS PO 11/07/20 21:00 11/10/20 21:05 Sodium Chloride 1,000 ml @ 75 mls/hr [id number] IV 11/08/20 13:00 11/09/20 02:19 DC 11/08/20 14:21 Sucralfate (Carafate Suspension) 1 gm ACHS PO 11/10/20 12:00 11/11/20 08:28 Sucralfate (Carafate) 1 gm ACHS PO 11/07/20 21:00 11/10/20 12:45 DC 11/10/20 09:47 Timolol Maleate (Timoptic 0.5% Ophth Astrid) 1 drop DAILY OU 11/08/20 09:00 11/11/20 08:29 GERRI QUISPE MD Nov 11, 2020 08:39
[2020-11-11] MEDS ORDERED: BISACODYL 10 MG SUPP PR PRN (08:45)
[2020-11-11] MEDS: METOCLOPRAMIDE 5 MG TAB PO SCH ×2 (12:00→17:47)
[2020-11-11 14:00] VITALS: BP 141/68
[2020-11-11 20:00] VITALS: BP 126/62
[2020-11-11] MEDS: SENNA 8.6 MG TAB (SENOKOT) PO SCH (21:02)
[2020-11-11] MEDS: RAMELTEON 8 MG TAB (ROZEREM) PO PRN (21:02)
[2020-11-11] MEDS: LATANOPROST 0.005% OPHTH SOLN 2.5 ML OU SCH (21:06)
[2020-11-12 06:00] VITALS: BP 131/63
[2020-11-12] MEDS: LEVOTHYROXINE 50MCG TABLET (0.05MG) PO SCH (06:11)
[2020-11-12] MEDS: METOPROLOL SUCC (TopROL XL) 50MG **XL** TAB PO SCH ×3 (06:11→20:45)
[2020-11-12 07:18] LABS: CALCIUM LEVEL 8.3 MG/DL (8.8-10.2); CREATININE FOR GFR 1.27 MG/DL (0.55-1.30); POTASSIUM SERUM 3.7 MEQ/L (3.5-5.1)
[2020-11-12] MEDS: REMEDY PHYTOPLEX Z-GUARD PASTE 113GM TUBE (FROM STOREROOM PRODUCT) TOP SCH ×3 (09:00→20:45)
[2020-11-12] MEDS: METAMUCIL (PSYLLIUM) PACKET PO SCH (09:00)
[2020-11-12] MEDS: MULTIVITAMINS CHILDREN'S CHEWABLE TABLET PO SCH (09:19)
[2020-11-12] MEDS: CLOPIDOGREL 75 MG TAB PO SCH (09:19)
[2020-11-12] MEDS: METOCLOPRAMIDE 5 MG TAB PO SCH ×3 (09:21→17:11)
[2020-11-12] MEDS: ASPIRIN 81MG ENTERIC TABLET PO SCH (09:21)
[2020-11-12] MEDS: SUCRALFATE SUSP 1GM/10ML UD PO SCH ×4 (09:21→20:43)
[2020-11-12] MEDS: CALCIUM/VITAMIN D 500 MG TAB PO SCH (09:21)
[2020-11-12] MEDS: DOCUSATE SODIUM 100MG CAPSULE PO SCH ×2 (09:21→20:44)
[2020-11-12] MEDS: amLODIPine 5 MG TAB PO SCH ×2 (09:21→20:44)
[2020-11-12] MEDS: PREPARATION H SUPP (HEMORRHOID) PR SCH ×2 (09:22→20:44)
[2020-11-12] MEDS: PANTOPRAZOLE 40MG TAB (PROTONIX) PO SCH ×2 (09:22→20:43)
[2020-11-12] MEDS: TIMOLOL MALEATE 0.5% OPHTH SOLN 5 ML OU SCH (09:22)
[2020-11-12] MEDS: SALIVA SUBSTITUTE(MOUTHKOTE) BTL MT SCH ×4 (09:24→20:46)
[2020-11-12] MEDS: MAGIC MOUTHWASH SUSPENSION BTL SSP SCH ×3 (09:24→17:11)
[2020-11-12 14:34] VITALS: BP 108/56
[2020-11-12 20:00] VITALS: BP 104/53
[2020-11-12] MEDS: RAMELTEON 8 MG TAB (ROZEREM) PO PRN (20:43)
[2020-11-12] MEDS: SENNA 8.6 MG TAB (SENOKOT) PO SCH (20:44)
[2020-11-12] MEDS: LATANOPROST 0.005% OPHTH SOLN 2.5 ML OU SCH (20:46)
[2020-11-13] MEDS: METOPROLOL SUCC (TopROL XL) 50MG **XL** TAB PO SCH ×3 (05:25→20:29)
[2020-11-13] MEDS: LEVOTHYROXINE 50MCG TABLET (0.05MG) PO SCH (05:32)
[2020-11-13 05:36] VITALS: BP 99/52
[2020-11-13] MEDS: MULTIVITAMINS CHILDREN'S CHEWABLE TABLET PO SCH (08:43)
[2020-11-13] MEDS: CLOPIDOGREL 75 MG TAB PO SCH (08:43)
[2020-11-13] MEDS: ASPIRIN 81MG ENTERIC TABLET PO SCH (08:43)
[2020-11-13] MEDS: TIMOLOL MALEATE 0.5% OPHTH SOLN 5 ML OU SCH (08:44)
[2020-11-13] MEDS: SUCRALFATE SUSP 1GM/10ML UD PO SCH ×4 (08:44→20:22)
[2020-11-13] MEDS: PANTOPRAZOLE 40MG TAB (PROTONIX) PO SCH ×2 (08:44→20:23)
[2020-11-13] MEDS: CALCIUM/VITAMIN D 500 MG TAB PO SCH (08:44)
[2020-11-13] MEDS: SALIVA SUBSTITUTE(MOUTHKOTE) BTL MT SCH ×4 (08:44→20:23)
[2020-11-13] MEDS: MAGIC MOUTHWASH SUSPENSION BTL SSP SCH ×3 (08:44→17:29)
[2020-11-13] MEDS: METAMUCIL (PSYLLIUM) PACKET PO SCH (08:45)
[2020-11-13] MEDS: DOCUSATE SODIUM 100MG CAPSULE PO SCH ×2 (08:45→20:23)
[2020-11-13] MEDS: PREPARATION H SUPP (HEMORRHOID) PR SCH ×2 (08:45→20:24)
[2020-11-13] MEDS: REMEDY PHYTOPLEX Z-GUARD PASTE 113GM TUBE (FROM STOREROOM PRODUCT) TOP SCH ×3 (08:46→20:24)
[2020-11-13] MEDS: amLODIPine 5 MG TAB PO SCH ×2 (08:48→20:24)
[2020-11-13] MEDS: METOCLOPRAMIDE 5 MG TAB PO SCH (08:49)
[2020-11-13] MEDS ORDERED: METOCLOPRAMIDE 5 MG TAB PO PRN (11:15)
[2020-11-13 14:00] VITALS: BP 119/56
--- NOTE | 2020-11-13 16:55 | IPNPDOC ---
Text Note Date of Service The patient was seen on 11/13/20. NOTE Subjective: Patient is an 80-year-old with a PMHx of HTN, DLP, Hypothyroidism, CKD3 , who presented to the emergency room with nausea, vomiting, diarrhea for 2 months duration. Upon arrival to emergency room, she was found to have acute kidney inj ury and lactic acidosis. She was admitted to the hospital service for further evaluation and treatment. General surgery were called on consultation was subsequently performed an endoscopy which revealed esophageal stenosis which was dilated. Patient was admitted on 11/02 and discharged on 11/07 to ARU for continued physical therapy and occupational therapy. Patient was seen and examined at the bedside. Patient was sleeping upon my arrival but woke up and set up at the edge of the bed. Denies any chest pain, palpitations or cough. Denies any nausea, vomiting or abdominal pain. Reports her last bowel movement was 2 days prior. Objective: Vitals (See below) General: Sitting at the edge of the bed, appears comfortable, awake and alert HEENT: Normocephalic and atraumatic CVS: +S1S2 Lungs: There is fair air entry bilaterally without evidence of wheezing, crackle s or rhonchi Abdomen: Soft, non-distended, non-tender Extremities: LE are without edema, - Calf tenderness Assessment and plan: s/p Poor oral intake / Nausea and vomiting - possibly 2/2 esophageal stenosis - s/p EGD and Dilation with Dr. Fishman on 11/04 - Has been tolerating mechanical soft diet Deconditioning - c/w PT and OT as per ARU s/p ADELAIDA on CKD3 s/p AG metabolic acidosis s/p Hypokalemia HTN - BP well controlled - c/w Amlodipine and Metoprolol Femoral bypass - c/w ASA and Plavix Hypothyroidism - c/w Levothyroxine GI prophylaxis - c/w Protonix and Carafate DVT prophylaxis - c/w TEDs/ Sequentials Disposition: - As per ARU VS,Fishbone, I+O VS, Fishbone, I+O Vital Signs Date Time Temp Pulse Resp B/P (MAP) Pulse Ox O2 Delivery O2 Flow Rate FiO2 11/13/20 14:00 98.2 74 18 119/56 (77) 96 Room Air I&O- Last 24 Hours up to 6 AM 3/28/21 06:00 Intake Total 1240 ml Balance 1240 ml INGA BRICEÑO MD Nov 13, 2020 16:55
[2020-11-13 20:00] VITALS: BP 137/64
[2020-11-13] MEDS: LATANOPROST 0.005% OPHTH SOLN 2.5 ML OU SCH (20:23)
[2020-11-13] MEDS: SENNA 8.6 MG TAB (SENOKOT) PO SCH (20:24)
[2020-11-14] MEDS: LEVOTHYROXINE 50MCG TABLET (0.05MG) PO SCH (05:05)
[2020-11-14] MEDS: METOPROLOL SUCC (TopROL XL) 50MG **XL** TAB PO SCH ×3 (05:06→20:22)
[2020-11-14 06:35] LABS: BASO # 0.1 10^3/uL (0.0-0.2); BASO % 1.2 % (0.0-1.0); EOS # 0.3 10^3/uL (0.0-0.5); EOS % 5.7 % (0.0-3.0); HEMATOCRIT 34.8 % (36.0-47.0); HEMOGLOBIN 11.4 g/dl (12.0-15.5); LYMPH # 2.4 10^3/uL (1.5-5.0); LYMPH % 40.9 % (24.0-44.0); MEAN CORPUSCULAR HEMOGLOBIN 30.5 pg (27.0-33.0); MEAN CORPUSCULAR HGB CONC 32.8 g/dl (32.0-36.5); MONO # 1.2 10^3/uL (0.0-0.8); MONO % 19.5 % (2.0-8.0); NEUTROPHILS # 1.9 10^3/uL (1.5-8.5); NEUTROPHILS % 31.7 % (36.0-66.0); PLATELET COUNT, AUTOMATED 130 10^3/uL (150-450); RED BLOOD COUNT 3.74 10^6/uL (4.00-5.40)
[2020-11-14 06:50] LABS: CALCIUM LEVEL 8.4 MG/DL (8.8-10.2); CREATININE FOR GFR 1.39 MG/DL (0.55-1.30); GLOMERULAR FILTRATION RATE 38.7 (>32)
[2020-11-14] MEDS: MAGIC MOUTHWASH SUSPENSION BTL SSP SCH ×3 (07:40→16:44)
[2020-11-14] MEDS: SUCRALFATE SUSP 1GM/10ML UD PO SCH ×4 (07:40→20:14)
[2020-11-14] MEDS: SALIVA SUBSTITUTE(MOUTHKOTE) BTL MT SCH ×4 (07:41→20:15)
[2020-11-14] MEDS: amLODIPine 5 MG TAB PO SCH ×2 (07:41→20:15)
[2020-11-14] MEDS: MULTIVITAMINS CHILDREN'S CHEWABLE TABLET PO SCH (07:41)
[2020-11-14] MEDS: CALCIUM/VITAMIN D 500 MG TAB PO SCH (07:42)
[2020-11-14] MEDS: PANTOPRAZOLE 40MG TAB (PROTONIX) PO SCH ×2 (07:42→20:14)
[2020-11-14] MEDS: PREPARATION H SUPP (HEMORRHOID) PR SCH ×3 (07:42→20:14)
[2020-11-14] MEDS: DOCUSATE SODIUM 100MG CAPSULE PO SCH ×2 (07:42→20:14)
[2020-11-14] MEDS: ASPIRIN 81MG ENTERIC TABLET PO SCH (07:42)
[2020-11-14] MEDS: CLOPIDOGREL 75 MG TAB PO SCH (07:42)
[2020-11-14] MEDS: REMEDY PHYTOPLEX Z-GUARD PASTE 113GM TUBE (FROM STOREROOM PRODUCT) TOP SCH ×3 (07:43→20:16)
[2020-11-14] MEDS: TIMOLOL MALEATE 0.5% OPHTH SOLN 5 ML OU SCH (07:43)
[2020-11-14] MEDS: METAMUCIL (PSYLLIUM) PACKET PO SCH (07:44)
[2020-11-14 14:00] VITALS: BP 121/60
[2020-11-14 20:00] VITALS: BP 140/63
[2020-11-14] MEDS: SENNA 8.6 MG TAB (SENOKOT) PO SCH (20:14)
[2020-11-14] MEDS: LATANOPROST 0.005% OPHTH SOLN 2.5 ML OU SCH (20:15)
[2020-11-15] MEDS: METOPROLOL SUCC (TopROL XL) 50MG **XL** TAB PO SCH (05:49)
[2020-11-15] MEDS: LEVOTHYROXINE 50MCG TABLET (0.05MG) PO SCH (05:49)
[2020-11-15 06:00] VITALS: BP 142/69
[2020-11-15] MEDS ORDERED: AMLO1TAB24 PO (07:35)
[2020-11-15] MEDS ORDERED: PANT40TA29 PO (07:35)
[2020-11-15] MEDS ORDERED: ANTI2TAB16 PO (07:35)
[2020-11-15] MEDS ORDERED: LEVO50TA5 PO (07:35)
[2020-11-15] MEDS ORDERED: CLOP75TA2 PO (07:35)
[2020-11-15] MEDS ORDERED: ASPI-551 PO (07:35)
[2020-11-15] MEDS ORDERED: Latanoprost 0.005% Op Soln OU (07:35)
[2020-11-15] MEDS ORDERED: HEMO1SUP10 PR (07:35)
[2020-11-15] MEDS ORDERED: METO5TAB2 PO (07:35)
[2020-11-15] MEDS ORDERED: TIMO0.5S29 OU (07:35)
[2020-11-15] MEDS ORDERED: METO1TAB7 PO (07:35)
[2020-11-15] MEDS ORDERED: SUCR1ORA PO (07:35)
[2020-11-15] MEDS ORDERED: RAME8TAB2 PO (07:35)
[2020-11-15] MEDS ORDERED: META1POW PO (07:35)
[2020-11-15] MEDS: REMEDY PHYTOPLEX Z-GUARD PASTE 113GM TUBE (FROM STOREROOM PRODUCT) TOP SCH (09:00)
[2020-11-15] MEDS: PREPARATION H SUPP (HEMORRHOID) PR SCH (09:00)
[2020-11-15] MEDS: PANTOPRAZOLE 40MG TAB (PROTONIX) PO SCH (09:04)
[2020-11-15 09:05] VITALS: BP 142/69
[2020-11-15] MEDS: SUCRALFATE SUSP 1GM/10ML UD PO SCH ×2 (09:05→11:34)
[2020-11-15] MEDS: METAMUCIL (PSYLLIUM) PACKET PO SCH (09:05)
[2020-11-15] MEDS: CLOPIDOGREL 75 MG TAB PO SCH (09:05)
[2020-11-15] MEDS: CALCIUM/VITAMIN D 500 MG TAB PO SCH (09:05)
[2020-11-15] MEDS: MULTIVITAMINS CHILDREN'S CHEWABLE TABLET PO SCH (09:05)
[2020-11-15] MEDS: ASPIRIN 81MG ENTERIC TABLET PO SCH (09:05)
[2020-11-15] MEDS: DOCUSATE SODIUM 100MG CAPSULE PO SCH (09:05)
[2020-11-15] MEDS: amLODIPine 5 MG TAB PO SCH (09:05)
[2020-11-15] MEDS: SALIVA SUBSTITUTE(MOUTHKOTE) BTL MT SCH (09:06)
[2020-11-15] MEDS: TIMOLOL MALEATE 0.5% OPHTH SOLN 5 ML OU SCH (09:06)
[2020-11-15] MEDS: MAGIC MOUTHWASH SUSPENSION BTL SSP SCH ×2 (09:07→11:34)
== END 2020-11-15 12:00 | disposition home or self-care (01) | DRG 947 ==
LOC: M PM&R 18:31
PROVIDERS: ADMIT Physical Medicine & Rehabilitation; ATTEND Physical Medicine & Rehabilitation
DX: R53.1 Weakness (principal); K29.81 Duodenitis with bleeding; E87.2 Acidosis; K52.9 Noninfective gastroenteritis and colitis, unspecified; I12.9 Hypertensive chronic kidney disease with stage 1 through stage 4 chronic kidney disease, or unspecified chronic kidney disease; E78.5 Hyperlipidemia, unspecified; E03.9 Hypothyroidism, unspecified; N18.30 Chronic kidney disease, stage 3 unspecified; Z90.49 Acquired absence of other specified parts of digestive tract; R13.10 Dysphagia, unspecified; Z74.09 Other reduced mobility; Z66 Do not resuscitate; Z74.1 Need for assistance with personal care; R29.810 Facial weakness; K64.4 Residual hemorrhoidal skin tags; K22.2 Esophageal obstruction; Z79.82 Long term (current) use of aspirin; Z79.02 Long term (current) use of antithrombotics/antiplatelets; Z79.899 Other long term (current) drug therapy; Z88.5 Allergy status to narcotic agent; Z88.8 Allergy status to other drugs, medicaments and biological substances; Z98.62 Peripheral vascular angioplasty status

== ENCOUNTER → 2021-01-28 | Outpatient (CLI) | payer MEDICARE, BC, OTHER ==
[~2021-01-28] MED LIST changes: +ANTI2TAB16 PO; +ASPI-551 PO; +HEMO1SUP10 PR; +Latanoprost 0.005% Op Soln OU; +META1POW PO; +METO5TAB2 PO; +PANT40TA29 PO; +PRESCAP PO; +TIMO0.5S29 OU
== END ==
LOC: M LABSMTC 09:47
PROVIDERS: ATTEND Anesthesiology
DX: Z20.828 Contact with and (suspected) exposure to other viral communicable diseases (principal); Z11.59 Encounter for screening for other viral diseases

== ENCOUNTER 2021-02-02 07:25 | Day surgery (SDC) | payer MEDICARE, BC, OTHER ==
[~2021-02-02] VITALS: Ht 152.4 cm; Wt 59.4 kg
[~2021-02-02 07:25] MED LIST changes: +NS 1,000 ML IV ONE
[2021-02-02] MEDS ORDERED: propofoL 200 MG/20 ML VIAL As Ordered ONE (08:03)
[2021-02-02] MEDS ORDERED: LIDOCAINE 2% 100MG/5ML SDV (FOR ANES.) As Ordered ONE (08:04)
--- NOTE | 2021-02-02 08:39 | ROOR ---
Patient Name: January Axel Procedure Date: 02/02/2021 8:22 AM Date of : 1940 Age: 81 Room: [facility] Gender: Female Note Status: Finalized Procedure: Upper GI endoscopy Indications: Dysphagia Providers: Richar Fishman Jr, MD Referring MD: Fran Chiang MD Requesting Provider: Medicines: Propofol per Anesthesia Complications: No immediate complications. Procedure: Pre-Anesthesia Assessment: - Prior to the procedure, a History and Physical was performed, and patient medications and allergies were reviewed. The patient is competent. The risks and benefits of the procedure and the sedation options and risks were discussed with the patient. All questions were answered and informed consent was obtained. Patient identification and proposed procedure were verified by the physician and the nurse in the pre-procedure area and in the procedure room. Mental Status Examination: alert and oriented. Airway Examination: normal oropharyngeal airway and neck mobility. Respiratory Examination: clear to auscultation. CV Examination: normal. ASA Grade Assessment: II - A patient with mild systemic disease. After reviewing the risks and benefits, the patient was deemed in satisfactory condition to undergo the procedure. The anesthesia plan was to use moderate sedation / analgesia (conscious sedation). Immediately prior to administration of medications, the patient was re-assessed for adequacy to receive sedatives. The heart rate, respiratory rate, oxygen saturations, blood pressure, adequacy of pulmonary ventilation, and response to care were monitored throughout the procedure. The physical status of the patient was re-assessed after the procedure. The Endoscope was introduced through the mouth, and advanced to the second part of duodenum. The upper GI endoscopy was accomplished without difficulty. The patient tolerated the procedure well. Findings: The upper third of the esophagus, middle third of the esophagus and lower third of the esophagus were normal. A medium-sized hiatal hernia was present. One benign-appearing, intrinsic moderate stenosis was found at the gastroesophageal junction. The stenosis was traversed. A TTS dilator was passed through the scope. Dilation with a 12-13.5-15 mm balloon dilator was performed to 15 mm. The cardia, gastric fundus, gastric body, gastric antrum and prepyloric region of the stomach were normal. The duodenal bulb, first portion of the duodenum and second portion of the duodenum were normal. Impression: - Normal upper third of esophagus, middle third of esophagus and lower third of esophagus. - Medium-sized hiatal hernia. - Benign-appearing esophageal stenosis. Dilated. - Normal cardia, gastric fundus, gastric body, antrum and prepyloric region of the stomach. - Normal duodenal bulb, first portion of the duodenum and second portion of the duodenum. - No specimens collected. Recommendation: - Discharge patient to home (ambulatory). Procedure Code(s): --- Professional --- 45403, Esophagogastroduodenoscopy, flexible, transoral; with transendoscopic balloon dilation of esophagus (less than 30 mm diameter) Diagnosis Code(s): --- Professional --- K44.9, Diaphragmatic hernia without obstruction or gangrene K22.2, Esophageal obstruction R13.10, Dysphagia, unspecified CPT copyright 2019 [employer]. All rights reserved. The codes documented in this report are preliminary and upon disk sander review may be revised to meet current compliance requirements. Richar Fishman MD Richar Fishman Jr, MD 02/02/2021 8:39:13 AM Electronically signed by Richar Fishman Jr, MD Number of Addenda: 0 Note Initiated On: 02/02/2021 8:22 AM Estimated Blood Loss: Estimated blood loss: none.
[2021-02-02] MEDS ORDERED: PHENYLephrine 500MCG 5ML (100MCG/ML) SYRINGE As Ordered ONE (08:48)
--- NOTE | 2021-02-02 08:54 | ROOR ---
Patient Name: January Axel Procedure Date: 02/02/2021 8:22 AM Date of : 1940 Age: 81 Room: [facility] Gender: Female Note Status: Finalized Procedure: Colonoscopy Indications: Screening for colorectal malignant neoplasm Providers: Richar Fishman Jr, MD Referring MD: Fran Chiang MD Requesting Provider: Medicines: Propofol per Anesthesia Complications: No immediate complications. Procedure: Pre-Anesthesia Assessment: - Prior to the procedure, a History and Physical was performed, and patient medications and allergies were reviewed. The patient is competent. The risks and benefits of the procedure and the sedation options and risks were discussed with the patient. All questions were answered and informed consent was obtained. Patient identification and proposed procedure were verified by the physician and the nurse in the pre-procedure area and in the procedure room. Mental Status Examination: alert and oriented. Airway Examination: normal oropharyngeal airway and neck mobility. Respiratory Examination: clear to auscultation. CV Examination: normal. ASA Grade Assessment: II - A patient with mild systemic disease. After reviewing the risks and benefits, the patient was deemed in satisfactory condition to undergo the procedure. The anesthesia plan was to use moderate sedation / analgesia (conscious sedation). Immediately prior to administration of medications, the patient was re-assessed for adequacy to receive sedatives. The heart rate, respiratory rate, oxygen saturations, blood pressure, adequacy of pulmonary ventilation, and response to care were monitored throughout the procedure. The physical status of the patient was re-assessed after the procedure. The Colonoscope was introduced through the anus and advanced to the ileocolonic anastomosis. The colonoscopy was performed without difficulty. The patient tolerated the procedure well. The quality of the bowel preparation was adequate. Findings: The rectum, recto-sigmoid colon, sigmoid colon, descending colon, transverse colon, ascending colon and anastomosis appeared normal. Non-bleeding external hemorrhoids were found during retroflexion and during perianal exam. Impression: - The rectum, recto-sigmoid colon, sigmoid colon, descending colon, transverse colon, ascending colon and colonic anastomosis are normal. - Non-bleeding external hemorrhoids. - No specimens collected. Recommendation: - Discharge patient to home (ambulatory). - Repeat colonoscopy in 10 years for screening purposes. Procedure Code(s): --- Professional --- 96504, Colonoscopy, flexible; diagnostic, including collection of specimen(s) by brushing or washing, when performed (separate procedure) Diagnosis Code(s): --- Professional --- Z12.11, Encounter for screening for malignant neoplasm of colon K64.4, Residual hemorrhoidal skin tags CPT copyright 2019 [employer]. All rights reserved. The codes documented in this report are preliminary and upon photograph developer review may be revised to meet current compliance requirements. Richar Fishman MD Richar Fishman Jr, MD 02/02/2021 8:53:44 AM Electronically signed by Richar Fishman Jr, MD Number of Addenda: 0 Note Initiated On: 02/02/2021 8:22 AM Estimated Blood Loss: Estimated blood loss: none.
[2021-02-02 09:25] VITALS: BP 141/81
== END 2021-02-02 09:40 | disposition home or self-care (01) ==
LOC: M OPP 07:25
PROVIDERS: ATTEND Surgery
DX: Z12.11 Encounter for screening for malignant neoplasm of colon (principal); K64.8 Other hemorrhoids; Z79.82 Long term (current) use of aspirin; Z79.899 Other long term (current) drug therapy; Z88.5 Allergy status to narcotic agent; Z88.8 Allergy status to other drugs, medicaments and biological substances
CPT/HCPCS: 45378; J2370

== ENCOUNTER 2021-04-17 12:42 | Emergency (ER) | payer MEDICARE, BC, OTHER ==
[~2021-04-17] VITALS: Ht 152.4 cm; Wt 59.4 kg
[~2021-04-17 12:42] MED LIST changes: -FLOM0.4C39 PO; -KETO10TAB PO
[2021-04-17] MEDS ORDERED: KETOROLAC 30 MG/ML 1ML VIAL IV ONE (15:30)
[2021-04-17] MEDS ORDERED: NS 500 ML IV ONE (15:50)
[2021-04-17] MEDS ORDERED: ONDANSETRON 4MG/2ML VIAL IV ONE (15:50)
[2021-04-17] MEDS ORDERED: KETO10TAB PO (18:41)
[2021-04-17] MEDS ORDERED: FLOM0.4C39 PO (18:41)
[2021-04-17 21:32] VITALS: BP 124/74
== END 2021-04-17 21:37 | disposition home or self-care (01) ==
LOC: EDBD 12:42 → M ED 12:42
DX: N13.0 Hydronephrosis with ureteropelvic junction obstruction (principal); N28.89 Other specified disorders of kidney and ureter; G51.0 Bell's palsy; K80.20 Calculus of gallbladder without cholecystitis without obstruction; R94.31 Abnormal electrocardiogram [ECG] [EKG]; K59.00 Constipation, unspecified; R11.2 Nausea with vomiting, unspecified; E83.42 Hypomagnesemia; E03.9 Hypothyroidism, unspecified; I10 Essential (primary) hypertension; Z88.8 Allergy status to other drugs, medicaments and biological substances; Z79.899 Other long term (current) drug therapy; Z79.890 Hormone replacement therapy
CPT/HCPCS: 70450; 74176; 83735; 93005; 96361; 96374; 96375; 99284; J1885; J2405

== ENCOUNTER → 2021-04-17 | Outpatient (REF) | payer MEDICARE, BC, OTHER ==
[~2021-04-17] MED LIST changes: +ALIR75PE3 SQ; +FLOM0.4C39 PO; +KETO10TAB PO; -NS 1,000 ML IV ONE; -PRAL1INJ SQ
== END ==
LOC: M LAB REF 16:54
PROVIDERS: ATTEND Internal Medicine Nephrology
DX: E83.42 Hypomagnesemia (principal)

== ENCOUNTER → 2021-05-26 | Outpatient (REF) | payer MEDICARE, BC, OTHER ==
[~2021-05-26] MED LIST changes: +FLOM0.4C39 PO; +KETO10TAB PO
== END ==
LOC: M LAB REF 13:46
PROVIDERS: ATTEND Internal Medicine Nephrology
DX: E83.42 Hypomagnesemia (principal)

== ENCOUNTER 2021-08-13 08:24 | Emergency (ER) | payer MEDICARE, BC, OTHER ==
[2021-08-13 09:25] LABS: RSV AMPLIFICATION NEGATIVE (NEGATIVE)
== END 2021-08-13 11:29 | disposition expired ==
LOC: M ED 08:24
DX: I46.9 Cardiac arrest, cause unspecified (principal); U07.1 COVID-19; I10 Essential (primary) hypertension; N18.9 Chronic kidney disease, unspecified; Z79.82 Long term (current) use of aspirin; Z79.899 Other long term (current) drug therapy; Z88.6 Allergy status to analgesic agent